=== PATIENT | female | born 1935 | race Two or more races ===

== ENCOUNTER 2025-04-07 16:20 | Inpatient (IN) | payer MEDICARE, MEDICAID, SELFPAY ==
[2025-04-07] VITALS (13 sets, daily range): BP systolic 113–140; BP diastolic 33–99; PULSE 96–141; RESP 13–27; TEMP 36.5–37.1; O2SAT 90–97; BMI 31.8; BMI 34.7
--- NOTE | 2025-04-07 16:39 | EKG_ITS ---
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
--- NOTE | 2025-04-07 16:39 | XR_ITS ---
Examination: PA lateral chest 2 views TECHNIQUE: Upright PA and lateral chest 2 views Standing time: April 07, 2025 1805 hours Comparison December 27, 2019. FINDINGS: Atrial fibrillation with chest pain today FINDINGS: Mild heart failure Moderate enlargement cardiac contour Prominent vascular congestion. Early perihilar basilar septal edema IMPRESSION: Mild heart failure
--- NOTE | 2025-04-07 16:39 | PD.EDRME ---
Rapid Medical Screening Exam RME Arrival date/time: 04/07/25 16:20 89-year-old female with no known medical history presents to the emergency room with a chief complaint of bilateral lower extremity swelling, shortness of breath, chest tightness x 1 week I have greeted and performed a focused initial assessment of this patient. A comprehensive ED assessment and evaluation of the patient, analysis of all test results, and completion of the medical decision making process will be conducted by additional ED providers. Chief Complaint: Extremity Injury, Lower Time Seen by Provider: 04/07/25 16:30 Vital signs reviewed by provider: Yes
[2025-04-07 17:21] LABS: Basophils # (Auto) 0.1 Thou/mm3 (0.0-0.2); Basophils % (Auto) 1 % (0-2.5); Eosinophils % (Auto) 0 % (0-10); Hemoglobin 8.9 g/dL (12.0-16.0); Immature Granulocytes % (Auto) 0 % (0-0); Immature Granulocytes Auto 0.03 Thou/mm3 (0.00-0.00); Lymphocytes # (Auto) 1.2 Thou/mm3 (1.0-4.8); Lymphocytes % (Auto) 16 % (10-50); Mean Corpuscular HGB Conc 30.7 g/dl (31.0-37.0); Mean Corpuscular Hemoglobin 24.8 pg (25.0-35.0); Mean Corpuscular Volume 81 fL (80-100); Monocytes # (Auto) 0.9 Thou/mm3 (0.0-0.8); Monocytes % (Auto) 11 % (0-12); Neutrophils # (Auto) 5.5 Thou/mm3 (1.8-7.7); Neutrophils % (Auto) 72 % (37-80); Nucleated Red Blood Cell % 0 /100 WBC (0); Platelet Count 379 Thou/mm3 (140-440); RDW Standard Deviation 53.3 fL (36.4-46.3); Red Blood Count 3.59 Miln/mm3 (4.00-5.20); White Blood Count 7.7 Thou/mm3 (3.6-11.0)
[2025-04-07 17:36] LABS: Collection Type, Urine Clean Catch
--- NOTE | 2025-04-07 17:36 | PC.NURSE ---
PT CAME INTO ED WITH DAUGHTER FOR LOWER EXTREMITY PAIN.
[2025-04-07 17:46] LABS: Alanine Aminotransferase 17 U/L (10-49); Albumin, Serum 4.3 gm/dL (3.4-4.8); Albumin/Globulin Ratio 1.2 (1.2-2.2); Alkaline Phosphatase 120 U/L (46-116); Anion Gap 13 (7-16); Aspartate Amino Transferase 27 U/L (0-34); BUN/Creatinine Ratio 28 Ratio (12-20); Bilirubin,Total 1.4 mg/dL (0.3-1.2); Blood Urea Nitrogen 28 mg/dL (9-23); Calcium 8.6 mg/dL (8.3-10.6); Calcium (Corrected) 8.6 mg/dL (8.5-10.1); Carbon Dioxide 22.8 mMol/L (20.0-31.0); Chloride 103 mMol/L (98-107); Estimated Creatinine Clearance 38.6 mL/min (>60); Globulin 3.7 gm/dL (2.3-3.5); Glucose 126 mg/dL (74-106); Magnesium 1.9 mg/dL (1.6-2.6); Osmolality,Calculated 285 (275-295); Potassium 4.1 mMol/L (3.4-5.1); Sodium 139 mMol/L (136-145); eGFR 54 See Note
[2025-04-07 17:58] LABS: B-Type Natriuretic Peptide 379 pg/mL (0-100)
[2025-04-07 18:15] LABS: Bacteria,Urine Rare; Bilirubin,Urine Negative (Negative); Blood,Urine Trace (Negative); Clarity,Urine Clear (Clear/Hazy); Color,Urine Lt-Yellow (Lt Yel-Yel); Glucose, Urine Negative (Negative); Hyaline Casts,Urine < 1 /hpf (0-1); Ketones,Urine Negative (Negative); Leukocyte Esterase,Urine Positive (Negative); Nitrite,Urine Positive (Negative); Protein,Urine Negative (Neg - Trace); RBC,Urine 4 /hpf (0-3); Specific Gravity,Urine 1.015 (1.001-1.035); Squamous Epithelial Cell,Urine 2 /hpf (0-5); Urobilinogen,Urine Negative mg/dL (0.0-1.0); WBC,Urine 13 /hpf (0-5)
--- NOTE | 2025-04-07 18:31 | EDNOTE_ITS ---
Lower Extremity Injury RME/HPI General Chief Complaint: Extremity Injury, Lower Stated Complaint: LEG / FEET PAIN SWELLING X 1 WK Time Seen by Provider: 04/07/25 16:30 Arrival date/time: 04/07/25 16:20 RME / HPI RME / HPI Narrative: 04/07/25 16:20 89-year-old female with no known medical history presents to the emergency room with a chief complaint of bilateral lower extremity swelling, shortness of breath, chest tightness x 1 week I have greeted and performed a focused initial assessment of this patient. A comprehensive ED assessment and evaluation of the patient, analysis of all test results, and completion of the medical decision making process will be conducted by additional ED providers. ------- Dr. Patino?s Main ED Evaluation: 89yo female with a history of HTN accompanied by her daughter presents to the ED for a chief complaint of bilateral feet pain and swelling x 1 week. Daughter states the patient was seen by her PCP in [place] last week and was prescribed 10 days worth of Lasix. Daughter states the patient has continued to have bilateral feet swelling and pain since then and does not have a follow-up appointment until the end of this month, so she brought the patient in for evaluation. Patient reports she has been unable to sleep at night due to feeling short of breath. She has been needing to sleep with her head elevated. Patient denies any chest pain, N/V, fever, chills or any other associated symptoms. Patient does ambulate with a walker. Related Data Allergies Allergy/AdvReac Type Severity Reaction Status Date / Time No Known Allergies Allergy Verified 04/07/25 16:23 Review of Systems Review of Systems Systems Reviewed: All systems reviewed, normal except as documented Past Medical History Past Medical History NEUROLOGIC: Negative Seizures CARDIAC: Positive Hypertension; Negative Congestive Heart Failure RESPIRATORY: Negative Chronic Obstructive Pulmonary Disease (COPD) GASTROINTESTINAL: Positive Gastrointestinal Disorders, Gall Bladder Disease and Gastroesophageal Reflux Disease GENITOURINARY: Negative Renal Disease ENDOCRINE: Negative Diabetes Mellitus Type 1 or Diabetes Mellitus Type 2 OTHER HISTORY: Negative Blood Transfusions, Blood Transfusion Reaction or Anesthesia Reactions Social History SMOKING STATUS: Never smoker SUBSTANCE USE: does not use ED Exam Narrative Physical exam: GENERAL APPEARANCE: AxOx4, generally well-appearing, no acute distress. HEENT: NC, AT. MMM. EOMI, clear conjunctiva, oropharynx clear. NECK: Supple without lymphadenopathy. No stiffness or restricted ROM. HEART: Irregularly irregular rhythm with tachycardia in the 120s, normal S1/S1, no m/r/g LUNGS: CTAB, moving air well. No crackles or wheezes are heard. ABDOMEN: Soft, nontender, nondistended with good bowel sounds heard. BACK: No midline C/T/L spine pain or deformity, No CVAT, no obvious deformity. EXTREMITIES: Without cyanosis, clubbing. Tense pitting edema bilaterally from the thighs down to the feet. MUSCULOSKELETAL: FROM of all major joints, no chest tenderness NEUROLOGICAL: Grossly nonfocal. Alert and oriented, moving all 4 extremities. CN not formally tested but appear grossly intact. Skin: Warm and dry without any rash. Course Course Course Narrative: CXR is ordered for determining the etiology of shortness of breath. Quality Measures none Orders Category Date Time Status COVID-19 Screening Questionnaire NOW Care 04/07/25 18:52 Active Decision to Admit X1 Care 04/07/25 18:52 Active EKG (ED ONLY) *Do not use* NOW Care 04/07/25 16:39 Completed EKG (ED Only) Stat Exams 04/07/25 16:39 Draft XR chest 2V Stat Exams 04/07/25 16:39 Completed B-Type Natriuretic Peptide Stat Lab 04/07/25 17:10 Completed CBC Stat Lab 04/07/25 17:10 Completed Comprehensive Metabolic Panel Stat Lab 04/07/25 17:10 Completed Magnesium Stat Lab 04/07/25 17:10 Completed Partial Thromboplastin Time Stat Lab 04/07/25 17:10 Received Prothrombin Time with INR Stat Lab 04/07/25 17:10 Received Troponin I Stat Lab 04/07/25 17:10 Completed Urinalysis Stat Lab 04/07/25 17:29 Completed Dextrose 5%-Water [D5w] 100 ml Med 04/07/25 18:32 Active Diltiazem Inj [Cardizem Inj] 125 mg IV 5 mg/hr Diltiazem Inj [Cardizem Inj] Med 04/07/25 18:32 Discontinued 15 mg IV X1 ONE Furosemide Inj [Lasix Inj] Med 04/07/25 18:32 Discontinued 40 mg IVP X1 ONE Vital Signs Vital signs: Vital Signs Temperature 98.8 F 04/07/25 16:45 Pulse Rate 130 H 04/07/25 16:45 Respiratory Rate 18 04/07/25 16:45 Blood Pressure 113/76 04/07/25 16:45 Pulse Oximetry (%) 95 04/07/25 16:45 Oxygen Delivery Method Room Air 04/07/25 16:45 Extremity Injury, Lower MDM Narrative MDM Narrative:: Scribe Attestation: 04/07/25 - Lu Kennedy am scribing for and in the presence of Dr. Patino. Patient data External records reviewed:: [facility] previous records (Per chart review, patient was seen here on 05/07/24 for hip pain.) Clinical information provided by:: patient and family (daughter) Social determinants that could affect healthcare access:: none Patient has the following chronic illnesses:: HTN How is presenting disease/condition affected by chronic disease/condition?: uneffected by Evaluation data The following diagnostics were reviewed and interpreted by me:: lab results, radiology exam(s) and EKG tracing(s) Lab and/or radiology exams considered but not ordered:: none Interpretation Summary: WBC count is normal, HnH is 8.9/29.0, Creatinine is normal, BUN is 28, Troponin is normal, BNP is 379, UA is unremarkable, according to my interpretation. EKG done at 1649, aFib RVR, rate of 119, normal intervals, no acute ST or T wave changes, no STEMI, according to my interpretation. [facility] Report Signed Patient: SEPIDEH COKER [facility]. Record#: [id number] Birthdate: 1935 Age/Sex: 89 / F Location: [facility] Attending Dr: Ordering Physician: Faisal García Date of Service: 04/07/25 Procedure(s): XR chest 2V Accession Number(s): [id number] cc: Faisal García; Smith Saez MD; NO PRIMARY/FAMILY,PHYSICIAN~ Examination: PA lateral chest 2 views TECHNIQUE: Upright PA and lateral chest 2 views Standing time: April 07, 2025 1805 hours Comparison December 27, 2019. FINDINGS: Atrial fibrillation with chest pain today FINDINGS: Mild heart failure Moderate enlargement cardiac contour Prominent vascular congestion. Early perihilar basilar septal edema IMPRESSION: Mild heart failure Dictated By: Smith Saez MD Signed By: <Electronically signed by Smith Saez MD in OV> 04/07/25 0036 Medications / Prescriptions Medications or Prescriptions considered but not ordered:: none Medication administrations:: Medication Administration History Diltiazem HCl 125 mg/ Dextrose 125 mls @ 5 mls/hr IV .Q24H SHANTA Stop: 05/07/25 18:31 Discontinued Medications Diltiazem HCl (Diltiazem Inj 5 Mg/Ml Vial 5 Ml) 15 mg IV X1 ONE Stop: 04/07/25 18:33 Furosemide (Furosemide Inj 10 Mg/Ml 4ml Vial) 40 mg IVP X1 ONE Stop: 04/07/25 18:33 see above Consultations Consultation(s) initiated? (list below): Yes Consultation #1 (Physician, Specialty, Details): Discussed case with Dr. Navarro from Hospitalist service regarding admission. Discussed patients ED course, exam findings, labs, and radiology results. The Hospitalist agrees to accept the patient for admission. Time: 18:41 Diagnosis Extremity Injury, Lower Differential Diagnosis: other (CHF, arthritis pain, varicose veins) Most likely diagnosis given after review of the tests above:: see clinical impression below Admission Indicated Admission indicated?: indicated Admission Request Was there a request for admission?: Yes Admission Attestation Admission request attestation: Discussed case with [] from Hospitalist service regarding admission. Discussed patients ED course, exam findings, labs, and radiology results. The Hospitalist [agrees,declines] to accept the patient for admission. Disposition Plan Disposition Plan: Admit Discharge Plan Plan Patient Disposition: Admit Acute Care w/in Hospital Prescriptions/Referrals Referrals: No Primary/Family,Physician [Primary Care Provider] - In 1 week Problem List Clinical Impression: CHF (congestive heart failure) Patient/Caregiver Discharge Instructions Print Language: Chilean Stand Alone Forms: [employer] Award Info., Patient Portal Info Letter
[2025-04-07] MEDS: FUROSEMIDE INJ 10 MG/ML 4ML VIAL 40 MG IVP (18:57)
[2025-04-07] MEDS: DILTIAZEM INJ 5 MG/ML VIAL 5 ML 15 MG IV (18:59)
[2025-04-07] MEDS: DILTIAZEM INJ 125 MG in DEXTROSE 5%-WATER 100 ML IV (18:59)
--- NOTE | 2025-04-07 19:22 | PC.NURSE ---
assisted pt up to bsc and back to be with daughter at bedside.
[2025-04-07 19:32] LABS: INR 1.2 (0.9-1.3); Partial Thromboplastin Time 29.1 Seconds (22.0-36.0); Prothrombin Time 13.1 Seconds (9.0-12.2)
[2025-04-07 19:44] LABS: Free T4 (Free Thyroxine) 1.01 ng/dL (0.89-1.76); Thyroid Stimulating Hormone 5.53 uIU/mL (0.55-4.78)
--- NOTE | 2025-04-07 19:51 | PD.HHHP ---
Documentation for date of: 04/07/25 HPI - Hospitalist History of Present Illness History of Present Illness: Leg swelling History of present illness: An 89-year-old female presented to the ER with the chief complaint of bilateral lower extremity swelling. The patient described one week of progressive leg swelling. She states the swelling began recently but has persisted despite starting a diuretic prescribed by her PCP last week. It causes discomfort and has not improved. She also c/o shortness of breath. Patient denied chest pain, fever, or cough. She came to the ER because the swelling persisted and caused increased discomfort. The patient has a history of arthritis involving the hips and waist, with prior consideration for steroid injections and hip replacement, declined due to fear of anesthesia. No known history of HTN, DM, or CAD, though she has been previously noted to have prediabetes. Current medications include Lisinopril, Meclizine, Lansoprazole, Vitamin D, and a recent diuretic. Social history includes no smoking, alcohol, or drug use. She is functionally independent and ambulatory with a walker due to chronic hip and back pain. She lives with her daughter, who is her primary caregiver. Surgical history includes procedures for kidney stones. No prior cardiac history reported. In the ER, vital signs recorded as temp 98.8 F, HR 130 bpm, RR 18, BP 113/76 mmHg, saturation 95% on room air. Labs revealed WBC 7.7, Hb 8.9, Plt 379, Na 139, K 4.1, BUN 28, Creatinine 1.0, Glucose 126, BNP 379, Troponin negative. CXR showed mild heart failure. EKG revealed atrial fibrillation with RVR. Patient was started on Cardizem drip by ER physician. Admit for further evaluation and treatment. Review of Systems Review of Systems Narrative Review of Systems: A 14 point review of systems was assessed and negative except for that per HPI Past Medical History Past Medical History NEUROLOGIC: Negative Seizures CARDIAC: Positive Hypertension; Negative Congestive Heart Failure RESPIRATORY: Negative Chronic Obstructive Pulmonary Disease (COPD) GASTROINTESTINAL: Positive Gastrointestinal Disorders, Gall Bladder Disease and Gastroesophageal Reflux Disease GENITOURINARY: Negative Renal Disease ENDOCRINE: Negative Diabetes Mellitus Type 1 or Diabetes Mellitus Type 2 OTHER HISTORY: Negative Blood Transfusions, Blood Transfusion Reaction or Anesthesia Reactions Social History SMOKING STATUS: Never smoker SUBSTANCE USE: does not use Meds Home Medications and Allergies Home Medications ?Medication ?Instructions ?Recorded ?Confirmed ?Type cholecalciferol (vitamin D3) 25 25 mcg PO DAILY 04/07/25 04/07/25 History mcg (1,000 unit) tablet dexlansoprazole 30 mg 30 mg PO DAILY 04/07/25 04/07/25 History capsule,biphase delayed release furosemide 20 mg tablet 20 mg PO DAILY 04/07/25 04/07/25 History lisinopril 10 mg tablet 10 mg PO DAILY 04/07/25 04/07/25 History meclizine 12.5 mg tablet 12.5 mg PO Q12H PRN dizziness 04/07/25 04/07/25 History Allergies Allergy/AdvReac Type Severity Reaction Status Date / Time No Known Allergies Allergy Verified 04/07/25 16:23 Exam Vital Signs Temp Pulse Resp BP Pulse Ox O2 Del Method 97.7 F 96 20 117/71 97 Room Air 04/07/25 18:27 04/07/25 19:44 04/07/25 18:27 04/07/25 18:59 04/07/25 18:27 04/07/25 18:27 Narrative Constitutional: Female, in no apparent distress. Eyes: Extraocular movements intact. No ptosis. PERRL. Neck: Supple, trachea midline. No thyromegaly. Lungs: Bibasilar crackles. CV: S1, S2. Irregular rate and rhythm. Murmur. GI: Soft, nontender. No HSM. Musculoskeletal: No cyanosis. BLE edema. Neuro: No focal deficit. No sensory deficit. Alert and oriented x3. Psychiatric: No signs of depression and is nonfocal. Skin: Warm and dry. Results - Hospitalist Labs Diagrams: 04/07/25 17:10 04/07/25 17:10 Labs: Short CBC 04/07/25 Range/Units 17:10 WBC 7.7 (3.6-11.0) Thou/mm3 Hgb 8.9 L (12.0-16.0) g/dL Hct 29.0 L (36.0-46.0) % Plt Count 379 (140-440) Thou/mm3 BMP 04/07/25 17:10 Sodium 139 Potassium 4.1 Chloride 103 Carbon Dioxide 22.8 BUN 28 H Creatinine 1.0 Glucose 126 H Calcium 8.6 Cardiac Enzymes 04/07/25 Range/Units 17:10 Troponin I 0.020 (0.0-0.045) ng/mL Liver Function 04/07/25 Range/Units 17:10 Total Bilirubin 1.4 H (0.3-1.2) mg/dL AST 27 (0-34) U/L ALT 17 (10-49) U/L Alkaline Phosphatase 120 H (46-116) U/L Albumin 4.3 (3.4-4.8) gm/dL Urine 04/07/25 Range/Units 17:29 Urine Color Lt-Yellow (Lt Yel-Yel) Urine Clarity Clear (Clear/Hazy) Urine pH 6.0 (5.0-7.0) Ur Specific [place] 1.015 (1.001-1.035) Urine Protein Negative (Neg - Trace) Urine Glucose (UA) Negative (Negative) Assessment & Plan -Hospitalist Additional Assessment #Atrial Fibrillation with RVR Assessment: New-onset AF with RVR (HR 130 bpm), [id number] Score: 4 (age >=5, female, probable HF), EKG confirmed Plan: - Continue Cardizem drip for acute rate control; transition to oral rate control once stable - Initiate anticoagulation given elevated stroke risk - Monitor telemetry and HR response closely - TTE to assess cardiac structure/function #Heart Failure Assessment: Mild heart failure on CXR, elevated BNP 379, symptoms of SOB and bilateral LE edema; no known prior HF diagnosis Plan: - Loop diuretic IV for volume overload - Monitor I/Os and daily weights - Sodium restriction and fluid restriction as appropriate - Monitor electrolytes and renal function daily - TTE to assess ejection fraction and structural disease - Initiate guideline-directed medical therapy (GDMT) based on EF - Cardiology consult #Anemia Assessment: Hb 8.9, chronicity unclear; no overt bleeding reported, unclear etiology Plan: - Trend CBC; assess iron studies, B12, folate - Monitor for signs of acute blood loss #UTI Plan: - Ceftriaxone Quality Measures Quality Measures none Advance care planning discussed with:: patient
[2025-04-07 21:21] LABS: Glucose Estimated Average 126 mg/dL (80-131)
[2025-04-07 21:47] LABS: Iron 18 mcg/dL (50-170); Percent Iron Saturation 4 % (20-55); Total Iron Binding Capacity 403 mcg/dL (250-425); Unsaturated Iron Binding 385 (225-295)
[2025-04-07 22:24] LABS: Folate > 24.00 ng/mL (>5.38); Vitamin B12 780 pg/mL (211-911)
[2025-04-07] MEDS: MECLIZINE HCL 25 MG TABLET 12.5 MG PO (23:12)
[2025-04-07] MEDS: APIXABAN 2.5 MG TABLET 5 MG PO (23:12)
[2025-04-07] MEDS: MELATONIN 3 MG TABLET PO (23:13)
[2025-04-07] MEDS: IBUPROFEN TAB 200 MG TABLET PO (23:13)
[2025-04-07] MEDS: cefTRIAXone/D5w 1gm IV premix 1 GM/50 ML BAG IV (23:17)
[2025-04-08] VITALS (12 sets, daily range): BP systolic 93–115; BP diastolic 52–73; PULSE 71–96; RESP 14–89; TEMP 36.1–36.8; O2SAT 92–98; BMI 34.7
[2025-04-08 06:23] LABS: Basophils # (Auto) 0.1 Thou/mm3 (0.0-0.2); Basophils % (Auto) 1 % (0-2.5); Eosinophils # (Auto) 0.1 Thou/mm3 (0.0-0.5); Eosinophils % (Auto) 2 % (0-10); Hematocrit 23.8 % (36.0-46.0); Immature Granulocytes % (Auto) 0 % (0-0); Immature Granulocytes Auto 0.02 Thou/mm3 (0.00-0.00); Lymphocytes # (Auto) 1.2 Thou/mm3 (1.0-4.8); Lymphocytes % (Auto) 19 % (10-50); Mean Corpuscular HGB Conc 32.4 g/dl (31.0-37.0); Mean Corpuscular Hemoglobin 25.5 pg (25.0-35.0); Mean Corpuscular Volume 79 fL (80-100); Monocytes # (Auto) 0.8 Thou/mm3 (0.0-0.8); Monocytes % (Auto) 13 % (0-12); Neutrophils % (Auto) 64 % (37-80); Nucleated Red Blood Cell % 0 /100 WBC (0); Platelet Count 297 Thou/mm3 (140-440); RDW Standard Deviation 52.4 fL (36.4-46.3); Red Blood Count 3.02 Miln/mm3 (4.00-5.20); White Blood Count 6.2 Thou/mm3 (3.6-11.0)
[2025-04-08 06:31] LABS: Hemoglobin 7.7 g/dL (12.0-16.0)
[2025-04-08 06:45] LABS: Anion Gap 8 (7-16); BUN/Creatinine Ratio 26 Ratio (12-20); Blood Urea Nitrogen 26 mg/dL (9-23); Calcium 8.5 mg/dL (8.3-10.6); Carbon Dioxide 28.2 mMol/L (20.0-31.0); Cardiac Risk Estimate 3.4 RATIO (3.7-5.6); Chloride 104 mMol/L (98-107); Cholesterol 98 mg/dL (132-200); Estimated Creatinine Clearance 38.9 mL/min (>60); Glucose 106 mg/dL (74-106); HDL Cholesterol 29 mg/dL (40-60); LDL Cholesterol,Calculated 57 mg/dL (0-130); Osmolality,Calculated 284 (275-295); Potassium 3.5 mMol/L (3.4-5.1); Sodium 140 mMol/L (136-145); Triglycerides 62 mg/dL (30-150); Troponin I 0.023 ng/mL (0.0-0.045); eGFR 54 See Note
--- NOTE | 2025-04-08 08:45 | PC.SS ---
Update: Patient admitted due to AFIB. Patient receiving Cardizem drip.
[2025-04-08] MEDS: IBUPROFEN TAB 200 MG TABLET PO (09:12)
[2025-04-08] MEDS: APIXABAN 2.5 MG TABLET 5 MG PO ×2 (09:13→20:41)
[2025-04-08] MEDS: FUROSEMIDE INJ 10 MG/ML 4ML VIAL 40 MG IVP (09:13)
[2025-04-08] MEDS: cefTRIAXone/D5w 1gm IV premix 1 GM/50 ML BAG IV (09:13)
--- NOTE | 2025-04-08 10:15 | CHAP ---
Patient was visited by the Spiritual Care Volunteer who prayed for them. (Volunteer was in the hospital from 09:15-10:15).
--- NOTE | 2025-04-08 12:00 | PC.SS ---
SPORTS ANCHOR conducted bedside contact with the patient conduct initial assessment and to discuss discharge planning.? Present at bedside with patient was daughter Suzy Maxwell .? Patient?s daughter provided information for assessment and discharge planning.? Patient is Jamaican speaking.? Patient resides at home with daughter.? Patient utilizes a walker to assist with ambulation.? Patient does not utilize home oxygen.? Patient is able to complete ADL?s independently.? Patient?s surrogate medical decision maker is daughter, Suzy Maxwell.? Patient utilizes [facility] for PCP services.? Patient does not possess any specialty providers.? Patient utilizes [facility] for medication services.? Plan is for the patient to return home at the time of discharge.? Family will provide transportation on behalf of the patient.? No further discharge needs identified.? No further intervention required at this time, social media developer will be available to address any further concerns.? Next of Kin: Suzy Maxwell D/C Plan: Home
--- NOTE | 2025-04-08 13:00 | PD.IMCONS ---
HPI Data of Consult Consult date: 04/08/25 Requesting Physician: Jyoti Guevara MD Primary Care Provider: Physician No Primary/Family Consult Narrative Reason for consult: A-fib with RVR and CHF History of present illness: A 89-year-old female with a past medical history of essential hypertension, GI bleed, anemia secondary to diverticulosis in 2019, osteoarthritis GERD presented to the emergency department for worsening bilateral lower extremity swelling.. Patient apparently has been having worsening leg swelling over the past couple of weeks and did see her primary care doctor who did start her on Lasix but did not improve much and hence came to the emergency department for further evaluation. Patient also complains of leg pain which is mostly neuropathic and is very tender to touch. On examination she does have at least 2+ leg swelling. On further questioning patient does complain of shortness of breath but denies any kind of palpitations or any chest pain or chest pressure. She does have some orthopnea but no PND and denies any kind of syncope or fall but has some occasional dizziness. In the emergency department initial vital signs showed a temperature of 90 8.5F, heart rate of 138 bpm, respiratory rate of 18/min blood pressure of 113/76 mmHg saturation 95% on room air. Labs showed WBC of 7.7 hemoglobin of 8.9, platelet of 375, sodium of 139, potassium 4.1, BUN of 28, creatinine of 1.0 glucose of 126 BNP was 379. Troponin was negative. EKG showed atrial fibrillation with RVR chest x-ray did not show mild vascular congestion. Patient was started on Cardizem drip at 5 mg/h in the emergency department and admitted for further evaluation of his with RVR as well as CHF and cardiology consulted for the same. Past medical history: As noted above Past surgical history history of colonoscopy in 2020 with history of GI bleed and diverticulosis Social history: Does not smoke and denies any current alcohol or drug abuse walks with the help of a walker and lives with the daughter who is the primary caregiver Family history: No significant history of heart disease in the family Allergies: NKDA Travel history: None recently cc:: cc: Jyoti Guevara MD Review of Systems Review of Systems Narrative Review of Systems: All other 12 systems apart from HPI were reviewed and are negative Past Medical History Past Medical History NEUROLOGIC: Negative Seizures CARDIAC: Positive Hypertension; Negative Congestive Heart Failure RESPIRATORY: Negative Chronic Obstructive Pulmonary Disease (COPD) GASTROINTESTINAL: Positive Gastrointestinal Disorders, Gall Bladder Disease and Gastroesophageal Reflux Disease GENITOURINARY: Negative Renal Disease ENDOCRINE: Negative Diabetes Mellitus Type 1 or Diabetes Mellitus Type 2 OTHER HISTORY: Negative Blood Transfusions, Blood Transfusion Reaction or Anesthesia Reactions Social History SMOKING STATUS: Never smoker SUBSTANCE USE: does not use Meds Home Medications and Allergies Home Medications ?Medication ?Instructions ?Recorded ?Confirmed ?Type cholecalciferol (vitamin D3) 25 25 mcg PO DAILY 04/07/25 04/07/25 History mcg (1,000 unit) tablet dexlansoprazole 30 mg 30 mg PO DAILY 04/07/25 04/07/25 History capsule,biphase delayed release furosemide 20 mg tablet 20 mg PO DAILY 04/07/25 04/07/25 History lisinopril 10 mg tablet 10 mg PO DAILY 04/07/25 04/07/25 History meclizine 12.5 mg tablet 12.5 mg PO Q12H PRN dizziness 04/07/25 04/07/25 History Allergies Allergy/AdvReac Type Severity Reaction Status Date / Time No Known Allergies Allergy Verified 04/07/25 16:23 Exam Vital Signs Temp Pulse Resp BP Pulse Ox O2 Del Method 96.9 F 78 15 105/63 98 Room Air 04/09/25 00:00 04/09/25 00:00 04/09/25 00:00 04/09/25 00:00 04/09/25 00:00 04/09/25 00:00 Narrative Exam General: Alert and oriented x3. In no acute distress. Eyes: Pupils are equal and reactive to light bilaterally. HEENT: Atraumatic, normocephalic. No JVD noted. Mucosa moist. Cardiovascular: Normal S1 and S2. Irregularly irregular, 2 or 6 systolic murmur heard in the right sternal border as well as the apex, no rubs and gallops. 2+ bilateral lower extremity edema Respiratory: No respiratory distress. Lungs are clear to auscultation bilaterally but decreased at the bases with occasional crackles. Abdomen: Soft, nontender, nondistended. Skin: No rash. Warm to touch. Musculoskeletal: No gross injuries. Able to move all 4 extremities. Neuro: Alert and oriented x3. No focal neuro deficits. Psych: Normal affect and mood Results Labs 04/08/25 20:10 04/08/25 05:55 Labs: Short CBC 04/08/25 04/08/25 Range/Units 05:55 20:10 WBC 6.2 (3.6-11.0) Thou/mm3 Hgb 7.7 L 7.9 L (12.0-16.0) g/dL Hct 23.8 L 24.8 L (36.0-46.0) % Plt Count 297 D (140-440) Thou/mm3 BMP 04/08/25 05:55 Sodium 140 Potassium 3.5 D Chloride 104 Carbon Dioxide 28.2 BUN 26 H Creatinine 1.0 Glucose 106 Calcium 8.5 Cardiac Enzymes 04/08/25 Range/Units 05:55 Troponin I 0.023 (0.0-0.045) ng/mL Assessment and Plan Additional Assessment & Plan Additional Plan: A 89-year-old female with a past medical history of essential hypertension, GI bleed, anemia secondary to diverticulosis in 2019, osteoarthritis GERD presented to the emergency department for worsening bilateral lower extremity swelling. 1. New onset atrial fibrillation with RVR 2. Acute CHF exacerbation-systolic versus diastolic? 3. Severe anemia with hemoglobin of 7.9 4. Essential hypertension 5. History of GI bleed with history of diverticulosis in 2019 6. Iron deficiency anemia 7. Osteoarthritis 8. GERD 9. Neuropathy-autonomic? Patient presented with new onset paroxysmal atrial fibrillation with RVR with a heart rate of around 130-120 bpm. EKG confirmed the atrial fibrillation. Patient was started on diltiazem drip at 5 mg/h and now rate is controlled between 60 to 80 bpm. Patient blood pressure appears to be stable. Recommended to stop the diltiazem drip 2 hours after starting metoprolol XL 50 mg once daily. Can also start with metoprolol 25 mg once daily for now and give an additional dose of the blood pressure is permissible. Patient potassium is 3.5 recommend to replace with 60 mg oral potassium and also to keep potassium greater than 4 magnesium greater than 2.0 at all times. Heparin drip for anticoagulation if no contraindications of any acute GI bleed and will need Eliquis later if hemoglobin stable as the chads Vascor is high. Patient appears to have new onset CHF exacerbation-unclear if systolic versus diastolic. Patient does have 2+ lower extremity edema bilaterally. BNP elevated at 379 and as well as chest x-ray shows mild vascular congestion. Recommend to start diuresis with Lasix 40 mg IV once daily and keep net -1 to 2 L/day. Monitor renal function closely. Strict input output Daily weights and 2 g sodium diet. Echocardiogram ordered and will follow-up the results to confirm systolic versus diastolic congestive heart failure. Patient does have systolic congestive heart failure then patient will need goal-directed medical therapy with beta-camilla, Entresto and spironolactone based on her blood pressure. Severe anemia with hemoglobin of 7.9. Iron studies shows really low iron at 14 and low saturation at 4% with elevated TIBC at 389. Discussed with the primary team to give patient IV iron daily for now and further workup to rule out any kind of acute GI bleed or hemolysis. Patient will need to be on anticoagulation given her new onset paroxysmal atrial fibrillation with RVR. Management of rest of the medical conditions as per primary team and other consultants. Thank you for the consult and allowing me to participate in the care of the patient. Cardiology will continue to follow. Armando Hanson M.D. Interventional Cardiology
--- NOTE | 2025-04-08 14:55 | PC.NURSE ---
pt. Bp 93/52, orders to hold metoprolol and recheck BP in 30 minutes
[2025-04-08] MEDS: POTASSIUM CHLORIDE 20 mEq TABCR 60 MEQ PO (14:57)
--- NOTE | 2025-04-08 15:23 | PD.HHPROG ---
Documentation for date of: 04/08/25 Subjective - Hospitalist Subjective Interval history: At bedside today, patient states she is feeling better compared to presentation but continues to have some pain on her foot. She has bilateral pedal edema up to her knees. Her shortness of breath has improved. Continues to be on A-fib, rate controlled. Continues to be on Cardizem drip. Discussed with cardiology, recommended starting metoprolol 50 XL and stopping Cardizem drip. Review of Systems Review of Systems Systems Reviewed: All systems reviewed, normal except as documented Exam Vital Signs Temp Pulse Resp BP Pulse Ox O2 Del Method 98.3 F 77 24 H 93/52 L 97 Room Air 04/08/25 12:00 04/08/25 14:57 04/08/25 12:00 04/08/25 14:57 04/08/25 12:00 04/08/25 04:00 Narrative Constitutional: Elderly female, appears comfortable, laying on bed, saturating well on room air HEENT: EOMI, PEERLA, no icterus Neck: Supple, full range of motion, no observable masses. Lungs: Clear and good breath sounds equally. No wheezing. No rhonchi. CV: Irregularly irregular rate, S1 and S2 heard without murmur GI: Soft, nondistended. No rebound tenderness. Musculoskeletal: No joint swelling, no redness, no edema. Neuro: No focal deficit. No sensory deficit. Alert and oriented, grossly intact cranial nerves Psychiatric: Appropriate mood and affect Skin: 2+ bilateral pedal edema Objective - Hospitalist Labs Diagram: 04/08/25 05:55 04/08/25 05:55 Labs: Laboratory Results - last 24 hr 04/07/25 04/07/25 04/08/25 17:10 17:29 05:55 WBC 7.7 6.2 RBC 3.59 L 3.02 L Hgb 8.9 L 7.7 L Hct 29.0 L 23.8 L MCV 81 79 L MCH 24.8 L 25.5 MCHC 30.7 L 32.4 RDW Std Deviation 53.3 H 52.4 H Plt Count 379 297 D Neut % (Auto) 72 64 Lymph % (Auto) 16 19 [place] % (Auto) 11 13 H Eos % (Auto) 0 2 Baso % (Auto) 1 1 Neut # (Auto) 5.5 4.0 Lymph # (Auto) 1.2 1.2 [place] # (Auto) 0.9 H 0.8 Eos # (Auto) 0.0 0.1 Baso # (Auto) 0.1 0.1 Immature Gran # (Auto) 0.03 H 0.02 H Absolute Nucleated RBC 0.00 0.00 Immature Gran % 0 0 Nucleated RBC % 0 0 PT 13.1 H INR 1.2 APTT 29.1 Sodium 139 140 Potassium 4.1 3.5 D Chloride 103 104 Carbon Dioxide 22.8 28.2 Anion Gap 13 8 BUN 28 H 26 H Creatinine 1.0 1.0 Estim Creat Clear Calc 38.6 L 38.9 L eGFR 54 L 54 L BUN/Creatinine Ratio 28 H 26 H Glucose [address] Glu mg/dL 126 Hemoglobin A1c 6.0 Calculated Osmolality 285 284 Calcium 8.6 8.5 Corrected Calcium 8.6 Magnesium 1.9 Iron 18 L TIBC 403 Iron Saturation 4 L Unsat Iron Binding 385 H Total Bilirubin 1.4 H AST 27 ALT 17 Alkaline Phosphatase 120 H Troponin I 0.020 0.023 B-Natriuretic Peptide 379 H Total Protein 8.0 Albumin 4.3 Globulin 3.7 H Albumin/Globulin Ratio 1.2 Triglycerides 62 Cholesterol 98 L LDL Cholesterol, Calc 57 HDL Cholesterol 29 L Cholesterol/HDL Ratio 3.4 L Vitamin B12 780 Folate > 24.00 TSH 5.53 H Free T4 1.01 Ur Collection Type Clean Catch Urine Color Lt-Yellow Urine Clarity Clear Urine pH 6.0 Ur Specific [place] 1.015 Urine Protein Negative Urine Glucose (UA) Negative Urine Ketones Negative Urine Blood Trace Urine Nitrite Positive Urine Bilirubin Negative Urine Urobilinogen (Auto) Negative Ur Leukocyte Esterase Positive Urine RBC 4 H Urine WBC 13 H Ur Squamous Epith Cells 2 Urine Bacteria Rare Hyaline Casts < 1 Assessment & Plan Assessment: Patient is an 89 years old female with no known past medical history presented with complaint of extremity swelling, pain and shortness of breath # New onset A-fib Atrial Fibrillation with RVR New-onset AF with RVR (HR 130 bpm), [id number] Score: 4 (age >=5, female, probable HF), EKG confirmed Plan: - We will stop the Cardizem drip and start her on metoprolol XL 50 mg daily - Continues to be on Eliquis 5 mg twice daily - Cardiology following, appreciate recommendations - Continues to be on A-fib, rate controlled currently - Echocardiography pending #Heart Failure Mild heart failure on CXR, elevated BNP 379, symptoms of SOB and bilateral LE edema; no known prior HF diagnosis Plan: - Continues to be on Lasix 40 mg IV daily - Monitor strict I/Os and daily weights - Sodium restriction and fluid restriction as appropriate - Monitor electrolytes and renal function daily - Cardiology on board, awaiting echocardiogram # Iron deficiency anemia Hb 8.9 on presentation, chronicity unclear; no overt bleeding reported Plan: - B12 and folate level within normal limits - Iron level noted to be low - Started on IV iron therapy - 7.7 today, follow-up with evening level, transfuse if less than 7 #UTI Noted to have WBCs in the urine Plan: - We will continue with Rocephin daily #Peripheral neuropathy Patient complains of bilateral foot pain, concerning for neuropathy Plan: - Currently patient's blood pressure is soft, we will start her on gabapentin if blood pressure improves Code: Full code Diet: Cardiac diet DVT prophylaxis: On Eliquis for A-fib Disposition: Telemetry for management of new onset A-fib with RVR and volume overload Jyoti Guevara MD Time Spent with Patient Time: Total time spent is greater than 50% in coordination of care (as documented) at patient's floor/unit and/or counseling patient: Time with patient: Greater than 35 minutes Reason for Continued Stay Reason for continued stay: continue IV diuretic Quality Measures Quality Measures none Advance care planning discussed with:: patient
--- NOTE | 2025-04-08 15:29 | PC.NURSE ---
Dr. khan aware of new Bp reading 96/55, orders to keep holding metoprolol PO and continue cardiazem until bag ends and then reassess BP before next dose of cardiazem
[2025-04-08] MEDS: FERRIC SOD GLUC INJ 125 MG in SODIUM CHLORIDE 0.9% 100 ML 110 MG IV (16:49)
--- NOTE | 2025-04-08 19:13 | ECHO_ITS ---
Transthoracic Echo Report Ht (in): 62 Wt (lb): 190 Exam Location: [facility] Status: Inpatient Freight Air Brake Fitter: JENKINS Jonah^^^^ Indications: Procedure Performed: BP: / HR: Technical Quality: Fair MEASUREMENTS (Male / Female) Normal Values 2D ECHO LV Diastolic Diameter PLAX 4.6 cm 4.2 - 5.9 / 3.9 - 5.3 cm LV Systolic Diameter PLAX 4.0 cm IVS Diastolic Thickness 1.2 cm 0.6 - 1.0 / 0.6 - 0.9 cm LVPW Diastolic Thickness 1.1 cm 0.6 - 1.0 / 0.6 - 0.9 cm LV Relative Wall Thickness 0.5 LVOT Diameter 1.7 cm Aortic Root Diameter 3.1 cm LA Systolic Diameter LX 4.0 cm 3.0 - 4.0 / 2.7 - 3.8 cm LV Ejection Fraction MOD 4C 36.2 % LV Ejection Fraction 4C AL 38.7 % LA Volume Index 45.7 cm?/m? 16 - 28 cm?/m? DOPPLER AV Peak Velocity 153.0 cm/s AV Peak Gradient 9.1 mmHg AV Mean Gradient 6.5 mmHg AV Velocity Time Integral 34.0 cm AI Peak Velocity 276.0 cm/s AI Peak Gradient 30.2 mmHg AI Pressure Half Time 826.0 ms LVOT Peak Velocity 51.0 cm/s LVOT Peak Gradient 1.0 mmHg LVOT Velocity Time Integral 11.8 cm AV Area Cont Eq vti 0.8 cm? AV Area Cont Eq pk 0.8 cm? MV Peak Velocity 92.8 cm/s MV Peak Gradient 3.1 mmHg MV Mean Velocity 61.8 cm/s MV Mean Gradient 2.0 mmHg MV Area PHT 4.2 cm? MR Peak Velocity 382.5 cm/s MR Peak Gradient 58.8 mmHg Mitral E Point Velocity 81.5 cm/s LV E' Lateral Velocity 9.4 cm/s Mitral E to LV E' Lateral Ratio 8.7 LV E' Septal Velocity 6.4 cm/s Mitral E to LV E' Septal Ratio 12.7 TR Peak Velocity 258.8 cm/s TR Peak Gradient 26.9 mmHg PV Peak Velocity 76.0 cm/s PV Peak Gradient 2.1 mmHg RVOT Peak Velocity 46.6 cm/s FINDINGS Left Ventricle The left ventricular ejection fraction is severely decreased, estimated at 25- 30%. There is grade III diastolic dysfunction of the left ventricle (restrictive filling pattern). There is global left ventricular hypokinesis. Regional wall motion abnormalities are present. Right Ventricle The right ventricle is normal in size and systolic function. The estimated right ventricular systolic pressure, 30 mmHg. Left Atrium Mildly increased left atrial volume 45.7 mL/m?. Right Atrium The right atrium is normal by two-dimensional imaging, color flow and Doppler imaging with no structural abnormalities, no thrombus formation present. Atrial Septum The interatrial septum appears normal with no evidence of a shunt. Aorta The aorta is normal by two-dimensional, color flow and Doppler interrogation. Mitral Valve [id number] mitral regurgitation. Mild thickening of the mitral valve leaflets. Mild mitral annular calcification. Aortic Valve Aortic valve sclerosis. Trace to mild aortic valve regurgitation. Tricuspid Valve There is mild tricuspid valve regurgitation. Pulmonic Valve Trivial pulmonic valve regurgitation. Vessels The pulmonary artery appears normal. The inferior vena cava pulmonary and hepatic veins appear normal. Pericardium There is a tiny, hemodynamically insignificant pericardial effusion. CONCLUSIONS Indication: CHF and A-fib Moderately reduced LV function with an EF of 35 to 40%. Diastolic dysfunction present but cannot be graded due to the A-fib Normal RV size and function. Estimated RVSP mild to moderately elevated. Moderate TR. Mild MAC and mild to moderate MR Moderately dilated RA and mildly dilated LA. Mild aortic valve sclerosis without stenosis. Armando Hanson (Electronically Signed) Final Date: 09 Apr 2025 03:27
[2025-04-08] MEDS: METOPROLOL SUCCINATE XL 25 MG TABCR PO (19:49)
[2025-04-08 20:28] LABS: Hematocrit 24.8 % (36.0-46.0)
[2025-04-08 20:34] LABS: Hemoglobin 7.9 g/dL (12.0-16.0)
[2025-04-09] VITALS (12 sets, daily range): BP systolic 102–155; BP diastolic 53–100; PULSE 76–173; RESP 12–20; TEMP 36.1–37.1; O2SAT 94–98
[2025-04-09 06:13] LABS: Basophils % (Auto) 0 % (0-2.5); Eosinophils # (Auto) 0.1 Thou/mm3 (0.0-0.5); Eosinophils % (Auto) 2 % (0-10); Immature Granulocytes % (Auto) 0 % (0-0); Immature Granulocytes Auto 0.03 Thou/mm3 (0.00-0.00); Lymphocytes # (Auto) 0.9 Thou/mm3 (1.0-4.8); Lymphocytes % (Auto) 13 % (10-50); Mean Corpuscular HGB Conc 31.6 g/dl (31.0-37.0); Mean Corpuscular Hemoglobin 24.8 pg (25.0-35.0); Mean Corpuscular Volume 78 fL (80-100); Monocytes # (Auto) 0.8 Thou/mm3 (0.0-0.8); Monocytes % (Auto) 12 % (0-12); Neutrophils # (Auto) 5.3 Thou/mm3 (1.8-7.7); Neutrophils % (Auto) 73 % (37-80); Nucleated Red Blood Cell % 0 /100 WBC (0); Platelet Count 256 Thou/mm3 (140-440); RDW Standard Deviation 52.6 fL (36.4-46.3); Red Blood Count 3.19 Miln/mm3 (4.00-5.20); White Blood Count 7.3 Thou/mm3 (3.6-11.0)
[2025-04-09 06:16] LABS: Hemoglobin 7.9 g/dL (12.0-16.0)
[2025-04-09 06:40] LABS: Anion Gap 8 (7-16); BUN/Creatinine Ratio 31 Ratio (12-20); Blood Urea Nitrogen 28 mg/dL (9-23); Carbon Dioxide 26.4 mMol/L (20.0-31.0); Chloride 104 mMol/L (98-107); Creatinine (Component) 0.9 mg/dL (0.6-1.3); Estimated Creatinine Clearance 43.2 mL/min (>60); Glucose 113 mg/dL (74-106); Osmolality,Calculated 282 (275-295); Potassium 4.2 mMol/L (3.4-5.1); Sodium 138 mMol/L (136-145); eGFR > 60 See Note
--- NOTE | 2025-04-09 06:41 | EKG_ITS ---
[facility] Test Date: 2025-04-09 Pat Name: SEPIDEH COKER [facility] Gender[facility] Sales Advisor: ZAHRA : [id number] Requested By: Yumiko Hurtado Order Number: [id number] Reading MD: Yumiko Hurtado Measurements Intervals [place] Rate: 135 P: SD: QRS: 84 QRSD: 89 T: -10 QT: 275 QTc: 412 Interpretive Statements ATRIAL FIBRILLATION WITH RAPID VENTRICULAR RESPONSE ABNORMAL QRS-T ANGLE Compared to ECG 04/07/2025 16:49:16 Myocardial infarct finding no longer present /[id number].pdf
[2025-04-09] MEDS: METOPROLOL TARTRATE INJ 1 MG/ML AMP 5 ML 5 MG IVP (06:46)
--- NOTE | 2025-04-09 06:53 | EVENTNT_ITS ---
Documentation for date of: 04/09/25 Event Note Event Note: Around 6:37am, BUSINESS DEVELOPMENT CONSULTANT called for afib with RVR. Patient alert and orientated, not in marisela acute distress. HR in the 150s, SBP in the 180s. EKG confirmed afib with RVR. Patient was given 5mg push of metoprolol, and HR improved to 130s. Progress notes reviewed, and will restart home metoprolol if BP can tolerate. I have reviewed and discussed the patient's care with my attending, Dr. Navarro, Yumiko Hurtado MD PGY-3
[2025-04-09] MEDS: METOPROLOL TARTRATE INJ 1 MG/ML AMP 5 ML 2.5 MG IVP (07:05)
[2025-04-09 08:57] LABS: Phosphorous 2.9 mg/dL (2.4-5.1)
[2025-04-09] MEDS: FUROSEMIDE INJ 10 MG/ML 4ML VIAL 40 MG IVP (09:49)
[2025-04-09] MEDS: cefTRIAXone/D5w 1gm IV premix 1 GM/50 ML BAG IV (09:50)
[2025-04-09] MEDS: APIXABAN 2.5 MG TABLET 5 MG PO ×2 (09:50→20:47)
--- NOTE | 2025-04-09 09:53 | ESPR_ITS ---
Documentation for date of: 04/09/25 Subjective Subjective Interval history: Patient seen and examined with son at bedside. Early this morning, she had RR for A-fib with RVR. Stated her heart rate went up while she tried hard to pass stool. Heart rate controlled with METOPROLOL IV push. Remained asymptomatic without chest pain or shortness of breath throughout the event. Feels well today. * She still feels constipated, added bowel reg. * Had 2+ mikie LE edema, 24H urine 1.6L, -1.2L net negative, normal K and renal function, will continue with LASIX 40 daily. * Recommended GABAPENTIN for peripheral neuropathy as noted on exam (LE pain) * HR 88, BP 118/80, started METOPROLOL SUCC 100 mg daily as tolerated, held IV METOPROLOL * If RR again, may give METOP 50 mg X1 and increase METOP to 100 mg daily * Recommended treating anemia, Hgb 7.9, no signed of bleed, had postive occult in Dec 2024, consider occult blood test this time, transfuse if Hgb <8. Exam Vital Signs Temp Pulse Resp BP Pulse Ox O2 Del Method 97.8 F 88 20 118/80 97 Room Air 04/09/25 07:20 04/09/25 09:49 04/09/25 07:20 04/09/25 09:49 04/09/25 07:20 04/09/25 04:00 Narrative Exam General: Alert and oriented x3. In no acute distress. Eyes: Pupils are equal and reactive to light bilaterally. HEENT: Atraumatic, normocephalic. No JVD noted. Mucosa moist. Cardiovascular: Normal S1 and S2. Irregularly irregular, 2 or 6 systolic murmur heard in the right sternal border as well as the apex, no rubs and gallops. 2+ bilateral lower extremity edema extending above the knee, tenderness over mikie shins. Respiratory: No respiratory distress. Lungs are clear to auscultation bilaterally but decreased at the bases with occasional crackles. Abdomen: Soft, nontender, nondistended. Skin: No rash. Warm to touch. Musculoskeletal: No gross injuries. Able to move all 4 extremities. Neuro: Alert and oriented x3. No focal neuro deficits. Psych: Normal affect and mood Objective Labs 04/11/25 05:34 04/11/25 05:34 Labs: Laboratory Results - last 24 hr 04/08/25 04/09/25 20:10 05:16 WBC 7.3 RBC 3.19 L Hgb 7.9 L 7.9 L Hct 24.8 L 25.0 L MCV 78 L MCH 24.8 L MCHC 31.6 RDW Std Deviation 52.6 H Plt Count 256 D Neut % (Auto) 73 Lymph % (Auto) 13 [place] % (Auto) 12 Eos % (Auto) 2 Baso % (Auto) 0 Neut # (Auto) 5.3 Lymph # (Auto) 0.9 L [place] # (Auto) 0.8 Eos # (Auto) 0.1 Baso # (Auto) 0.0 Immature Gran # (Auto) 0.03 H Absolute Nucleated RBC 0.00 Immature Gran % 0 Nucleated RBC % 0 Sodium 138 Potassium 4.2 D Chloride 104 Carbon Dioxide 26.4 Anion Gap 8 BUN 28 H Creatinine 0.9 Estim Creat Clear Calc 43.2 L eGFR > 60 BUN/Creatinine Ratio 31 H Glucose 113 H Calculated Osmolality 282 Calcium 8.0 L Phosphorus 2.9 Magnesium 2.0 Quality Measures Quality Measures none Advance care planning discussed with:: patient Assessment & Plan Assessment Current Active Medications: Generic Name Dose Route Start Last Admin Trade Name Freq PRN Reason Stop Dose Admin Apixaban 5 mg 04/07/25 21:00 04/09/25 09:50 Apixaban 2.5 Mg Tablet PO 05/07/25 20:59 5 mg BID SHANTA Administration Furosemide 40 mg 04/08/25 09:00 04/09/25 09:49 Furosemide Inj 10 Mg/Ml 4ml Vial IVP 05/08/25 08:59 40 mg QDAY SHANTA Administration Ceftriaxone Sodium/Dextrose 1 gm in 50 mls @ 100 mls/hr 04/07/25 19:15 04/09/25 09:50 Rocephin/D5w 1gm Iv Premix IV 04/14/25 19:14 100 mls/hr QDAY SHANTA Administration Ferric Sodium Gluconate 125 mg 110 mls @ 110 mls/hr 04/08/25 15:30 04/08/25 16:49 / Sodium Chloride IV 04/10/25 09:01 110 mls/hr QDAY SHANTA Administration Meclizine HCl 12.5 mg 04/07/25 22:30 04/07/25 23:12 Meclizine Hcl 25 Mg Tablet PO 05/08/25 08:59 12.5 mg BID PRN Administration DIZZINESS Melatonin 3 mg 04/07/25 22:30 04/07/25 23:13 Melatonin 3 Mg Tablet PO 05/08/25 20:59 3 mg HS PRN Administration INSOMNIA Metoprolol Succinate 50 mg 04/08/25 13:45 04/08/25 14:57 Metoprolol Succinate Xl 25 Mg Tabcr PO 05/08/25 13:44 Not Given QDAY SHANTA Metoprolol Succinate 100 mg 04/09/25 11:00 Metoprolol Succinate Xl 25 Mg Tabcr PO 05/09/25 10:59 QDAY SHANTA Metoprolol Tartrate 2.5 mg 04/09/25 07:00 04/09/25 07:05 Metoprolol Tartrate Inj 1 Mg/Ml Amp 5 Ml IVP 05/09/25 06:59 2.5 mg Q8HR SHANTA Administration Plan A 89-year-old female with a past medical history of essential hypertension, GI bleed, anemia secondary to diverticulosis in 2019, osteoarthritis GERD presented to the emergency department for worsening bilateral lower extremity swelling. 1. New onset atrial fibrillation with RVR 2. Acute CHF exacerbation-systolic versus diastolic? 3. Severe anemia with hemoglobin of 7.9 4. Essential hypertension 5. History of GI bleed with history of diverticulosis in 2019 6. Iron deficiency anemia 7. Osteoarthritis 8. GERD 9. Neuropathy-autonomic? Patient presented with new onset paroxysmal atrial fibrillation with RVR with a heart rate of around 130-120 bpm. EKG confirmed the atrial fibrillation. Patient was started on diltiazem drip at 5 mg/h and now rate is controlled between 60 to 80 bpm. Patient blood pressure appears to be stable. Recommended to stop the diltiazem drip 2 hours after starting metoprolol XL 50 mg once daily. Can also start with metoprolol 25 mg once daily for now and give an additional dose of the blood pressure is permissible. Patient potassium is 3.5 recommend to replace with 60 mg oral potassium and also to keep potassium greater than 4 magnesium greater than 2.0 at all times. Heparin drip for anticoagulation if no contraindications of any acute GI bleed and will need Eliquis later if hemoglobin stable as the chads Vascor is high. Patient appears to have new onset CHF exacerbation-unclear if systolic versus diastolic. Patient does have 2+ lower extremity edema bilaterally. BNP elevated at 379 and as well as chest x-ray shows mild vascular congestion. Recommend to start diuresis with Lasix 40 mg IV once daily and keep net -1 to 2 L/day. Monitor renal function closely. Strict input output Daily weights and 2 g sodium diet. Echocardiogram ordered and will follow-up the results to confirm systolic versus diastolic congestive heart failure. Patient does have systolic congestive heart failure then patient will need goal- directed medical therapy with beta-camilla, Entresto and spironolactone based on her blood pressure. Severe anemia with hemoglobin of 7.9. Iron studies shows really low iron at 14 and low saturation at 4% with elevated TIBC at 389. Discussed with the primary team to give patient IV iron daily for now and further workup to rule out any kind of acute GI bleed or hemolysis. Patient will need to be on anticoagulation given her new onset paroxysmal atrial fibrillation with RVR. 04/09/2025 Had RR overnight for AFIB with RVR while straining. HR improved with IV METOP pushes. HR 88, BP 118/80. Asymptomatic with chest pain or sob. ? Started METOP SUCC 100 mg daily, will increase dose if HR uncontrolled and BP tolerates. * If RR again, may give METOP 50 mg X1 and increase METOP to 100 mg daily. LE edema improved slighted, 2+ today, lungs clear, good urine output, ECHO showed EF 35-40% with mod reduced LV function, mod RA dilitation, mild LA dilitation mild mac, mild-mod MR, mild AV sclerosis w/o stenosis. Renal function and potassium normal. ? Continue LASIX 40 mg and fluid restrictions ? Will need close cardiology follow-up ? Recommended GABAPENTIN for peripheral neuropathy Constipated, had small brown stool 04/08, reports straining hard earlier this morning, likely cause for her to go. ? Started bowel regimen Hgb 7.9, no signs of active bleed, had positive occult blood test from previous admission on December 2024 ? Transfuse if Hgb less than 8 ? Recommended anemia workup, including occult blood test Management of rest of the medical conditions as per primary team and other consultants. Thank you for the consult and allowing me to participate in the care of the patient. Cardiology will continue to follow. Thank you for the opportunity to participate in the patient's care. Case was discussed with attending, Dr. Hanson. Marybeth De Paz DO PGYI Attending Provider Attestation/Addendum I have personally seen and examined the patient separately on the above date of service and discussed the plan of care with the resident. I reviewed the resident Dr. Marybeth De Paz consultation progress note and agree with the resident findings and plan in the note above and have also edited the documentation to reflect my findings and plan. Armando Hanson M.D. Interventional Cardiology
[2025-04-09] MEDS: FERRIC SOD GLUC INJ 125 MG in SODIUM CHLORIDE 0.9% 100 ML 110 MG IV (09:58)
[2025-04-09] MEDS: METOPROLOL SUCCINATE XL 25 MG TABCR 100 MG PO (11:23)
[2025-04-09] MEDS: bisacodyL 5 MG TABEC PO (11:24)
[2025-04-09] MEDS: POLYETHYLENE GLYCOL 17 GM PACKET PO (11:24)
[2025-04-09] MEDS: GABAPENTIN 100 MG CAPSULE PO (12:34)
--- NOTE | 2025-04-09 15:45 | ESPR_ITS ---
Documentation for date of: 04/09/25 Subjective Subjective Interval history: 89-year-old female patient with past medical history of hypertension, diabetes mellitus, coronary artery disease, arthritis on steroid injections, prediabetes, came to the ED due to progressive bilateral leg swelling associated with shortness of breath. Patient was found to have new onset CHF and A-fib with RVR. BNP was 379, EKG showed A-fib with RVR with no ischemic changes, troponin was within normal limits x 2. Patient was started on diltiazem however it was switched to metoprolol, after that patient developed A-fib with RVR again in which the dose of metoprolol was increased and was given IV metoprolol x 1.. At this time patient on Eliquis 5 mg twice daily, metoprolol 100 mg p.o. daily Lasix 40 mg IV daily. Overnight patient developed A-fib with RVR, heart rate reached to 170, patient was started on metoprolol IV 5 mg which brought down the heart rate to 120, patient was started oral metoprolol 100 mg p.o. daily as per cardiology recommendations. On examination today patient was found to have potassium, magnesium, phosphate levels, hemoglobin at baseline was 10.8 however now it is 7.9 most likely secondary to overload. Patient denied any new symptoms except of small rash on the right medial side of the ankle joint. Denied any fever or chills. Patient was started on ceftriaxone hide on by the night team for treatment of UTI, no need for antibiotics at this time. Today we will order for the patient PT evaluation, and to start the patient on gabapentin as the patient was complaining of bilateral lower extremity tenderness Exam Vital Signs Temp Pulse Resp BP Pulse Ox O2 Del Method 98.7 F 99 18 106/61 94 L Room Air 04/09/25 08:00 04/09/25 11:53 04/09/25 08:00 04/09/25 11:23 04/09/25 08:00 04/09/25 04:00 Narrative Exam GEN: AOx3, Bhutanese speaker, able to speak full sentences HEENT: NC/AC, PERRLA, oral mucosa moist, neck supple CVS: RRR, S1-S2 present, no murmurs appreciated RESP: CTAB GI: soft,non distended, non tender, NBS MSK: able to move all 4 limbs, +2 lower extremity edema SKIN: Right ankle medial side winston redness, no visible ulcer, no discharge, mild hotness and tenderness. MAINTENANCE GROUNDMAN: CN II-XII and Sensation grossly intact. Objective Labs 04/09/25 05:16 04/09/25 05:16 Labs: Laboratory Results - last 24 hr 04/08/25 04/09/25 20:10 05:16 WBC 7.3 RBC 3.19 L Hgb 7.9 L 7.9 L Hct 24.8 L 25.0 L MCV 78 L MCH 24.8 L MCHC 31.6 RDW Std Deviation 52.6 H Plt Count 256 D Neut % (Auto) 73 Lymph % (Auto) 13 [place] % (Auto) 12 Eos % (Auto) 2 Baso % (Auto) 0 Neut # (Auto) 5.3 Lymph # (Auto) 0.9 L [place] # (Auto) 0.8 Eos # (Auto) 0.1 Baso # (Auto) 0.0 Immature Gran # (Auto) 0.03 H Absolute Nucleated RBC 0.00 Immature Gran % 0 Nucleated RBC % 0 Sodium 138 Potassium 4.2 D Chloride 104 Carbon Dioxide 26.4 Anion Gap 8 BUN 28 H Creatinine 0.9 Estim Creat Clear Calc 43.2 L eGFR > 60 BUN/Creatinine Ratio 31 H Glucose 113 H Calculated Osmolality 282 Calcium 8.0 L Phosphorus 2.9 Magnesium 2.0 Quality Measures Quality Measures none Advance care planning discussed with:: patient and child Assessment & Plan Assessment Current Active Medications: Generic Name Dose Route Start Last Admin Trade Name Freq PRN Reason Stop Dose Admin Apixaban 5 mg 04/07/25 21:00 04/09/25 09:50 Apixaban 2.5 Mg Tablet PO 05/07/25 20:59 5 mg BID SHANTA Administration Bisacodyl 5 mg 04/09/25 10:00 04/09/25 11:24 Bisacodyl 5 Mg Tabec PO 05/09/25 09:59 5 mg QDAY SHANTA Administration Protocol Furosemide 40 mg 04/08/25 09:00 04/09/25 09:49 Furosemide Inj 10 Mg/Ml 4ml Vial IVP 05/08/25 08:59 40 mg QDAY SHANTA Administration Gabapentin 100 mg 04/09/25 11:30 04/09/25 12:34 Gabapentin 100 Mg Capsule PO 05/09/25 11:29 100 mg QDAY SHANTA Administration Ceftriaxone Sodium/Dextrose 1 gm in 50 mls @ 100 mls/hr 04/07/25 19:15 04/09/25 09:50 Rocephin/D5w 1gm Iv Premix IV 04/14/25 19:14 100 mls/hr QDAY SHANTA Administration Ferric Sodium Gluconate 125 mg 110 mls @ 110 mls/hr 04/08/25 15:30 04/09/25 09:58 / Sodium Chloride IV 04/10/25 09:01 110 mls/hr QDAY SHANTA Administration Meclizine HCl 12.5 mg 04/07/25 22:30 04/07/25 23:12 Meclizine Hcl 25 Mg Tablet PO 05/08/25 08:59 12.5 mg BID PRN Administration DIZZINESS Melatonin 3 mg 04/07/25 22:30 04/07/25 23:13 Melatonin 3 Mg Tablet PO 05/08/25 20:59 3 mg HS PRN Administration INSOMNIA Metoprolol Succinate 100 mg 04/09/25 11:00 04/09/25 11:23 Metoprolol Succinate Xl 25 Mg Tabcr PO 05/09/25 10:59 100 mg QDAY SHANTA Administration Metoprolol Tartrate 2.5 mg 04/09/25 07:00 04/09/25 07:05 Metoprolol Tartrate Inj 1 Mg/Ml Amp 5 Ml IVP 05/09/25 06:59 2.5 mg Q8HR SHANTA Administration Polyethylene Glycol 17 gm 04/09/25 10:00 04/09/25 11:24 Polyethylene Glycol 17 Gm Packet PO 05/09/25 09:59 17 gm QDAY SHANTA Administration Plan Summary:89-year-old female patient with past medical history of hypertension, diabetes mellitus, coronary artery disease, arthritis on steroid injections, prediabetes, came to the ED due to progressive bilateral leg swelling associated with shortness of breath. Patient was found to have new onset CHF and A-fib with RVR. BNP was 379, EKG showed A-fib with RVR with no ischemic changes, troponin was within normal limits x 2. Assessment and plan #Atrial Fibrillation with RVR #Heart Failure Mild heart failure on CXR, elevated BNP 379, symptoms of SOB and bilateral LE edema; orthopnea no known prior HF diagnosis New-onset AF with RVR (HR 130 bpm), [id number] Score: 4 (age >=5, female, probable HF), EKG confirmed Plan: - Start the patient on metoprolol succinate 100 mg p.o. daily - Eliquis 5 mg p.o. twice daily - Monitor telemetry and HR response closely - TTE to assess cardiac structure/function - Lasix 40 mg IV daily - Monitor I/Os and daily weights - Sodium restriction 2 g daily ?Fluid restriction to 1500 mL daily - Monitor electrolytes and renal function daily - Initiate guideline-directed medical therapy (GDMT) based on EF upon discharge - Cardiology consult, recommendation patient #Anemia Assessment: Hb 8.9, chronicity unclear; no overt bleeding reported, unclear etiology Plan: - Trend CBC; assess iron studies, B12, folate - Monitor signs of acute blood loss #UTI Plan: - Ceftriaxone 1 g daily #Bilateral lower extremity pain most likely secondary to: Neuropathy versus venous insufficiency #Bilateral lower extremity neuropathy #Bilateral lower extremity redness insufficiency #Right ankle cellulitis Plan ? Start the patient on gabapentin ? Patient already on ceftriaxone we will continue to monitor, will adjust or add coverage for MRSA as needed. Hospital Maintenance: FEN: Cardiac diet, with fluid restriction 1500 mL/day DVT ppx: Heparin subcu GI ppx: Protonix twice daily IV lines: PIV Hall: None Code status: Full code Dispo: Telemetry - Patient's plan and care discussed with my attending, Dr. Nicolas Peralta MD Internal Medicine PGY-2 Attending Provider Attestation/Addendum I attest that I was physically present for the evaluation, physical examination, lab and imaging review of the patient with the residents. I discussed the case with the residents and agree with the findings and plans of care as documented above. Jyoti Guevara MD
[2025-04-10] VITALS (14 sets, daily range): BP systolic 104–118; BP diastolic 64–78; PULSE 83–114; RESP 17–22; TEMP 21.1–37.1; O2SAT 94–97
[2025-04-10 06:16] LABS: Basophils % (Auto) 0 % (0-2.5); Eosinophils # (Auto) 0.1 Thou/mm3 (0.0-0.5); Eosinophils % (Auto) 1 % (0-10); Hematocrit 24.6 % (36.0-46.0); Immature Granulocytes % (Auto) 1 % (0-0); Immature Granulocytes Auto 0.04 Thou/mm3 (0.00-0.00); Lymphocytes # (Auto) 1.1 Thou/mm3 (1.0-4.8); Lymphocytes % (Auto) 14 % (10-50); Mean Corpuscular HGB Conc 31.7 g/dl (31.0-37.0); Mean Corpuscular Hemoglobin 24.8 pg (25.0-35.0); Mean Corpuscular Volume 78 fL (80-100); Monocytes # (Auto) 0.9 Thou/mm3 (0.0-0.8); Monocytes % (Auto) 12 % (0-12); Neutrophils # (Auto) 5.8 Thou/mm3 (1.8-7.7); Neutrophils % (Auto) 73 % (37-80); Nucleated Red Blood Cell # 0.02 Thou/mm3 (0.00-0.00); Nucleated Red Blood Cell % 0 /100 WBC (0); Platelet Count 248 Thou/mm3 (140-440); RDW Standard Deviation 51.9 fL (36.4-46.3); Red Blood Count 3.15 Miln/mm3 (4.00-5.20); White Blood Count 7.9 Thou/mm3 (3.6-11.0)
[2025-04-10 06:18] LABS: Hemoglobin 7.8 g/dL (12.0-16.0)
[2025-04-10 06:36] LABS: Anion Gap 6 (7-16); BUN/Creatinine Ratio 27 Ratio (12-20); Blood Urea Nitrogen 19 mg/dL (9-23); Calcium 7.9 mg/dL (8.3-10.6); Chloride 102 mMol/L (98-107); Creatinine (Component) 0.7 mg/dL (0.6-1.3); Estimated Creatinine Clearance 55.5 mL/min (>60); Glucose 109 mg/dL (74-106); Magnesium 1.8 mg/dL (1.6-2.6); Osmolality,Calculated 275 (275-295); Phosphorous 2.6 mg/dL (2.4-5.1); Potassium 3.9 mMol/L (3.4-5.1); Sodium 136 mMol/L (136-145); eGFR > 60 See Note
[2025-04-10 08:06] LABS: Ferritin 43 ng/mL (7.3-270.7); Iron 98 mcg/dL (50-170); Percent Iron Saturation 28 % (20-55); Total Iron Binding Capacity 340 mcg/dL (250-425); Unsaturated Iron Binding 242 (225-295)
[2025-04-10 08:17] LABS: Path Review Blood Smear Sent to Pathologist
[2025-04-10] MEDS: cefTRIAXone/D5w 1gm IV premix 1 GM/50 ML BAG IV (08:39)
[2025-04-10] MEDS: POTASSIUM CHLORIDE 20 mEq TABCR PO (08:39)
[2025-04-10] MEDS: bisacodyL 5 MG TABEC PO (08:40)
[2025-04-10] MEDS: APIXABAN 2.5 MG TABLET 5 MG PO ×2 (08:40→21:21)
[2025-04-10] MEDS: METOPROLOL SUCCINATE XL 25 MG TABCR 100 MG PO (08:40)
[2025-04-10] MEDS: POLYETHYLENE GLYCOL 17 GM PACKET PO (08:40)
[2025-04-10] MEDS: GABAPENTIN 100 MG CAPSULE PO (08:41)
[2025-04-10] MEDS: FUROSEMIDE INJ 10 MG/ML 4ML VIAL 40 MG IVP (08:41)
[2025-04-10] MEDS: Magnesium Sulfate 2 GM Ivpb 2 GM/50 ML BAG IV (08:57)
[2025-04-10] MEDS: FERRIC SOD GLUC INJ 125 MG in SODIUM CHLORIDE 0.9% 100 ML 110 MG IV (10:06)
--- NOTE | 2025-04-10 12:33 | ESPR_ITS ---
Documentation for date of: 04/10/25 Subjective Subjective Interval history: Patient examined at bedside today. Telemetry removed, patient is rate controlled at this time still in fib. No overnight events. Patient reports she is doing well. She is wondering when she can go home. Family is requesting sedation to have social work to speak with them in regards to some at home needs for the patient. She has not had a bowel movement in 2 days despite having bisacodyl and MiraLAX. No other complaints this time Exam Vital Signs Temp Pulse Resp BP Pulse Ox O2 Del Method 97.8 F 86 19 112/68 97 Room Air 04/10/25 12:00 04/10/25 12:00 04/10/25 12:00 04/10/25 12:00 04/10/25 12:00 04/10/25 12:00 Narrative Exam General: AAOx3, NAD, obese Angolan-speaking female HEENT: Moist mucous membranes, conjunctiva clear, EOMI, PERRLA, Cardiovascular: S1, S2, radial pulses +2 bilat, irregularly irregular Pulmonary: CTAB bilat no cough, no wheezing GI: No tenderness to light or deep palpitation, no guarding, rigidity, rebound tenderness or distension Extremities: Trace edema seen in lower extremities, dorsalis pedis pulses +2 bilaterally, venous stasis, cellulitis improving right lower extremity Neuro: AAOx3, no focal motor or sensory deficits in the UE or LE bilat Psych: Good judgement, thought and behavior. Cooperative Objective Labs 04/10/25 04:53 04/10/25 04:53 Labs: Laboratory Results - last 24 hr 04/10/25 04:53 WBC 7.9 RBC 3.15 L Hgb 7.8 L Hct 24.6 L MCV 78 L MCH 24.8 L MCHC 31.7 RDW Std Deviation 51.9 H Plt Count 248 Neut % (Auto) 73 Lymph % (Auto) 14 [place] % (Auto) 12 Eos % (Auto) 1 Baso % (Auto) 0 Neut # (Auto) 5.8 Lymph # (Auto) 1.1 [place] # (Auto) 0.9 H Eos # (Auto) 0.1 Baso # (Auto) 0.0 Immature Gran # (Auto) 0.04 H Absolute Nucleated RBC 0.02 H Immature Gran % 1 H Nucleated RBC % 0 Smear Path Review Sent to Pathologist Sodium 136 Potassium 3.9 Chloride 102 Carbon Dioxide 28.0 Anion Gap 6 L BUN 19 Creatinine 0.7 Estim Creat Clear Calc 55.5 L eGFR > 60 BUN/Creatinine Ratio 27 H Glucose 109 H Calculated Osmolality 275 Calcium 7.9 L Phosphorus 2.6 Magnesium 1.8 Iron 98 TIBC 340 Iron Saturation 28 Unsat Iron Binding 242 Ferritin 43 Quality Measures Quality Measures none Advance care planning discussed with:: patient Assessment & Plan Assessment Current Active Medications: Generic Name Dose Route Start Last Admin Trade Name Freq PRN Reason Stop Dose Admin Apixaban 5 mg 04/07/25 21:00 04/10/25 08:40 Apixaban 2.5 Mg Tablet PO 05/07/25 20:59 5 mg BID SHANTA Administration Bisacodyl 5 mg 04/09/25 10:00 04/10/25 08:40 Bisacodyl 5 Mg Tabec PO 05/09/25 09:59 5 mg QDAY SHANTA Administration Protocol Furosemide 40 mg 04/08/25 09:00 04/10/25 08:41 Furosemide Inj 10 Mg/Ml 4ml Vial IVP 05/08/25 08:59 40 mg QDAY SHANTA Administration Gabapentin 100 mg 04/09/25 11:30 04/10/25 08:41 Gabapentin 100 Mg Capsule PO 05/09/25 11:29 100 mg QDAY SHANTA Administration Ceftriaxone Sodium/Dextrose 1 gm in 50 mls @ 100 mls/hr 04/07/25 19:15 04/10/25 08:39 Rocephin/D5w 1gm Iv Premix IV 04/14/25 19:14 100 mls/hr QDAY SHANTA Administration Meclizine HCl 12.5 mg 04/07/25 22:30 04/07/25 23:12 Meclizine Hcl 25 Mg Tablet PO 05/08/25 08:59 12.5 mg BID PRN Administration DIZZINESS Melatonin 3 mg 04/07/25 22:30 04/07/25 23:13 Melatonin 3 Mg Tablet PO 05/08/25 20:59 3 mg HS PRN Administration INSOMNIA Metoprolol Succinate 100 mg 04/09/25 11:00 04/10/25 08:40 Metoprolol Succinate Xl 25 Mg Tabcr PO 05/09/25 10:59 100 mg QDAY SHANTA Administration Polyethylene Glycol 17 gm 04/09/25 10:00 04/10/25 08:40 Polyethylene Glycol 17 Gm Packet PO 05/09/25 09:59 17 gm QDAY SHANTA Administration Plan Assessment 89-year-old female patient with past medical history of hypertension, diabetes mellitus, coronary artery disease, arthritis on steroid injections, prediabetes, came to the ED due to progressive bilateral leg swelling associated with shortness of breath. Patient was found to have new onset CHF and A-fib with RVR. BNP was 379, EKG showed A-fib with RVR with no ischemic changes, troponin was within normal limits x 2. At this time patient is pending PT evaluation and community mental health social worker. #Atrial Fibrillation with RVR #Acute exacerbation of HFrEF, EF 35 to 40% Echo 04/08/2025: Moderately reduced LV function with an EF of 35 to 40%. Diastolic dysfunction present but cannot be graded due to the A-fib Normal RV size and function. Estimated RVSP mild to moderately elevated. Moderate TR. Mild MAC and mild to moderate MR Moderately dilated RA and mildly dilated LA. Mild aortic valve sclerosis without stenosis CHADVASC: 5 HAS-BLED: 2 At this time patient's blood pressure is a bit soft, will hold on adding further GDMT therapy today, however will add more upon DC Patient continues to be rate controlled Patient is 1.7 L negative net, and is not on oxygen at this time Plan: - Cardiology consulted, appreciate recs - Continue with metoprolol succinate 100 mg p.o. daily - Eliquis 5 mg p.o. twice daily - Monitor telemetry and HR response closely - Lasix 40 mg IV daily - Monitor I/Os and daily weights - Sodium restriction 2 g daily - Fluid restriction to 1500 mL daily - Monitor electrolytes and renal function daily - K and Mag above 4 and 2 respectively #Iron deficiency anemia Initial iron studies show low iron Patient's hemoglobin is 7.8 today, will transfuse 1 unit Folate and B12 unremarkable Patient could be just iron deficient however will further workup Ferritin normalized after being treated with IV iron Plan: - Trend CBC ?Follow-up with peripheral blood smear - FOBT ? Post transfusion H&H #UTI Will transition to oral antibiotics at some point Patient reported being symptomatic earlier in admission Plan: - Continue with ceftriaxone 1 g daily (04/07- #Bilateral lower extremity pain most likely secondary to: Neuropathy versus venous insufficiency #Bilateral lower extremity neuropathy #Bilateral lower extremity redness insufficiency #Right ankle cellulitis We will follow-up with MRSA screen to decide if we need to broaden antibiotic coverage Plan: ? Continue with gabapentin ? Patient already on ceftriaxone we will continue to monitor, will adjust or add coverage for MRSA as needed. #Health Maintenance Disposition: Telemetry DVT prophylaxis: Heparin subcu GI prophylaxis: Protonix Diet: Cardiac CODE STATUS: Full Patient seen and care discussed with my attending physician, Dr. Paola Farfan, PGY-1 Attending Provider Attestation/Addendum I attest that I was physically present for the evaluation, physical examination, lab and imaging review of the patient with the residents. I discussed the case with the residents and agree with the findings and plans of care as documented above. Jyoti Guevara MD
--- NOTE | 2025-04-10 13:11 | PC.SS ---
SS met pt, daughter, and Annel CABRERA went over request for DME equipment; pt would like hospital bed and 3-1 commode; medical team has requested PT; ROCIO met with pt bedside to provide information for medicare; Annel CABRERA interpreted information; pt was provided Armenian copy of IMM form
[2025-04-11] VITALS (9 sets, daily range): BP systolic 97–140; BP diastolic 53–98; PULSE 74–114; RESP 16–19; TEMP 36.1–36.8; O2SAT 95–100; BMI 34.9
[2025-04-11 01:45] LABS: Hematocrit 28.1 % (36.0-46.0); Hemoglobin 9.2 g/dL (12.0-16.0)
[2025-04-11 06:11] LABS: Basophils # (Auto) 0.1 Thou/mm3 (0.0-0.2); Basophils % (Auto) 1 % (0-2.5); Eosinophils # (Auto) 0.1 Thou/mm3 (0.0-0.5); Eosinophils % (Auto) 1 % (0-10); Hematocrit 28.4 % (36.0-46.0); Hemoglobin 8.9 g/dL (12.0-16.0); Immature Granulocytes % (Auto) 1 % (0-0); Lymphocytes # (Auto) 0.9 Thou/mm3 (1.0-4.8); Lymphocytes % (Auto) 11 % (10-50); Mean Corpuscular HGB Conc 31.3 g/dl (31.0-37.0); Mean Corpuscular Hemoglobin 25.7 pg (25.0-35.0); Mean Corpuscular Volume 82 fL (80-100); Monocytes % (Auto) 12 % (0-12); Neutrophils # (Auto) 6.1 Thou/mm3 (1.8-7.7); Neutrophils % (Auto) 74 % (37-80); Nucleated Red Blood Cell % 0 /100 WBC (0); Platelet Count 297 Thou/mm3 (140-440); RDW Standard Deviation 53.5 fL (36.4-46.3); Red Blood Count 3.46 Miln/mm3 (4.00-5.20); White Blood Count 8.2 Thou/mm3 (3.6-11.0)
[2025-04-11 06:39] LABS: Alanine Aminotransferase 12 U/L (10-49); Albumin, Serum 3.6 gm/dL (3.4-4.8); Albumin/Globulin Ratio 1.1 (1.2-2.2); Alkaline Phosphatase 107 U/L (46-116); Anion Gap 6 (7-16); Aspartate Amino Transferase 22 U/L (0-34); BUN/Creatinine Ratio 27 Ratio (12-20); Bilirubin,Total 0.6 mg/dL (0.3-1.2); Blood Urea Nitrogen 19 mg/dL (9-23); Calcium 8.1 mg/dL (8.3-10.6); Calcium (Corrected) 8.4 mg/dL (8.5-10.1); Carbon Dioxide 28.8 mMol/L (20.0-31.0); Chloride 101 mMol/L (98-107); Creatinine (Component) 0.7 mg/dL (0.6-1.3); Estimated Creatinine Clearance 55.5 mL/min (>60); Globulin 3.3 gm/dL (2.3-3.5); Glucose 132 mg/dL (74-106); Magnesium 2.1 mg/dL (1.6-2.6); Osmolality,Calculated 276 (275-295); Phosphorous 3.2 mg/dL (2.4-5.1); Potassium 4.2 mMol/L (3.4-5.1); Sodium 136 mMol/L (136-145); Total Protein 6.9 gm/dL (5.7-8.2); eGFR > 60 See Note
[2025-04-11] MEDS: APIXABAN 2.5 MG TABLET 5 MG PO ×2 (09:22→20:47)
[2025-04-11] MEDS: cefTRIAXone/D5w 1gm IV premix 1 GM/50 ML BAG IV (09:23)
[2025-04-11] MEDS: METOPROLOL SUCCINATE XL 25 MG TABCR 100 MG PO (09:23)
[2025-04-11] MEDS: GABAPENTIN 100 MG CAPSULE PO (09:23)
[2025-04-11] MEDS: POLYETHYLENE GLYCOL 17 GM PACKET PO (09:24)
[2025-04-11] MEDS: bisacodyL 10 MG SUPP PR (09:24)
[2025-04-11] MEDS: FUROSEMIDE INJ 10 MG/ML 4ML VIAL 40 MG IVP (09:24)
--- NOTE | 2025-04-11 12:35 | PC.SS ---
Addendum entered by Radha Gill 04/11/25 16:23: SS spoke to Carolina from [facility] they are unable to accept pt due to not having beds available. SS spoke to Suzy lawrence who is aware and her choice is [facility]. [facility] has accepted on [facility]. SS spoke to Marcia from [facility] and informed SS patient's health insurance requires for to send d/c orders, summary, H &P, progress note, PT notes, and facesheet to patient's health insurance for authorization. Marica from provided fax# [phone] and phone# [phone] to [employer] for insurance approval. has sent inquiry to [facility] using [employer] and [employer] for insruance authorization. Addendum entered by Radha Gill 04/11/25 15:36: SS has sent inquiry to the local SNF using [employer]. Original Note: SS has met with pt and dtr to discuss d/c options for home or SNF. Dtr and pt are now requesting SNF for short term rehab. SS met with bedside nurse, Torri who states pt is not psych, anxiety, or depression medications (pt and dtr also confirmed). SNF: 1st choice is [facility] 2nd choice is [facility] 3rd choice is [facility] 4th choice is [address]
--- NOTE | 2025-04-11 14:20 | PD.RESDS ---
Planned Discharge Date 04/11/25 DS: Providers Provider Date of admission: 04/07/25 19:22 Primary care physician: Physician No Primary/Family Admitting Provider: Jean Navarro MD Attending Provider on Admission: Jyoti Guevara MD Consults: 04/07/25 19:15 Consult to Cardiology Routine Comment: CHF Consulting Provider: Mar Santos 04/09/25 14:20 Referral Physical Therapy Urgent Comment: Physician Instructions: Attending Provider on DC: Jyoti Guevara MD Discharging Provider: Jyoti Guevara MD DS: Diagnosis Problem List Completed Was Problem List Reviewed/Reconciled?: Yes Hospital Course Hospital Course Hospital course: Ivory is a 89-year-old female was admitted on April 07, 2025 for acute exacerbation of HFrEF and new onset A-fib with RVR. She had arrived to the ED with vital signs recorded as temp 98.8 F, HR 130 bpm, RR 18, BP 113/76 mmHg, saturation 95% on room air. Labs revealed WBC 7.7, Hb 8.9, Plt 379, Na 139, K 4.1, BUN 28, Creatinine 1.0, Glucose 126, BNP 379, Troponin negative. CXR showed mild heart failure. EKG revealed atrial fibrillation with RVR. Patient was started on Cardizem drip by ER physician. Patient was admitted by internal medicine for further management of A-fib and HFrEF. Cardizem drip had never been started for patient and patient was managed with IV beta-blockers and was then started on metoprolol XL 100 mg and patient continued to be rate controlled. While patient was on the floors, patient had echocardiogram done which showed HFrEF, EF 35 to 40%, diastolic dysfunction could not be graded due to patient being in atrial fibrillation, and mild to moderate RVSP elevation.patient was started on anticoagulation, Eliquis 5 mg twice a day due to [id number] being 5. Patient was being diuresed with 40 mg of IV Lasix in which patient was able to be net negative upon DC. Patient did not require oxygen upon discharge. Goal-directed medical therapy was attempted to be started on patient, however patient continued to have low blood pressure and AVANI/ARB, Entresto nor Jardiance was initiated at the time. We will have patient's inspector balance wheel motion initiate these therapies once patient can tolerate with blood pressure. Discharge Instructions: Follow up with Dr. Hanson, inspector balance wheel motion, within one week upon D/[address] [id number]. Call to make an appointment. Follow up with your PCP within one week I am prescribing you Eliquis, this is your blood thinner for your atrial fibrillation, take this pill twice a day I am prescribing you Metoprolol 100 mg XL, this is to control your heart rate, take this pill once a day. I will be prescribing you a water pill, Lasix 40 mg every day, speak with your primary care doctor or inspector balance wheel motion if there needs to be an adjustment in dose I will hold your lisinopril due to your blood pressure being low, speak with your PCP or inspector balance wheel motion on deciding to resuming your medicine I recommend you getting a blood pressure cuff to measure your blood pressure every day to manage your high blood pressure Take your medicines as prescribed Return to ER if your symptoms worsen or return Have your PCP continue to work up your anemia Problem List: #Atrial Fibrillation with RVR #Acute exacerbation of HFrEF, EF 35 to 40% #Iron deficiency anemia #UTI #Bilateral lower extremity pain most likely secondary to: Neuropathy versus venous insufficiency #Bilateral lower extremity neuropathy #Bilateral lower extremity redness insufficiency #Right ankle cellulitis Discharge summary was reviewed with my attending Dr. Paola Farfan, PGY-1 Time Spent with Patient Time attestation: Total time spent providing and/or coordinating discharge services: Time spent: Less than 30 minutes Exam Vital Signs Temp Pulse Resp BP Pulse Ox O2 Del Method O2 Flow Rate 97.0 F 99 19 99/53 L 98 Room Air 0 04/11/25 12:00 04/11/25 13:55 04/11/25 12:00 04/11/25 13:55 04/11/25 12:00 04/11/25 12:00 04/10/25 18:48 Narrative Exam General: AAOx3, NAD, obese Fijian-speaking female HEENT: Moist mucous membranes, conjunctiva clear, EOMI, PERRLA, Cardiovascular: S1, S2, radial pulses +2 bilat, irregularly irregular Pulmonary: CTAB bilat no cough, no wheezing GI: No tenderness to light or deep palpitation, no guarding, rigidity, rebound tenderness or distension Extremities: Trace edema seen in lower extremities, dorsalis pedis pulses +2 bilaterally, venous stasis, cellulitis improving right lower extremity Neuro: AAOx3, no focal motor or sensory deficits in the UE or LE bilat Psych: Good judgement, thought and behavior. Cooperative Discharge Plan Plan Patient Disposition: Xfer Skilled Nsg Fac (SNF) Care Plan Goals: Discharge Instructions: Follow up with Dr. Hanson, inspector balance wheel motion, within one week upon D/[place] [place] [address]. Call to make an appointment. Follow up with your PCP within one week I am prescribing you Eliquis, this is your blood thinner for your atrial fibrillation, take this pill twice a day I am prescribing you Metoprolol 100 mg XL, this is to control your heart rate, take this pill once a day. I will be prescribing you a water pill, Lasix 40 mg every day, speak with your primary care doctor or inspector balance wheel motion if there needs to be an adjustment in dose I will hold your lisinopril due to your blood pressure being low, speak with your PCP or inspector balance wheel motion on deciding to resuming your medicine I recommend you getting a blood pressure cuff to measure your blood pressure every day to manage your high blood pressure Take your medicines as prescribed Return to ER if your symptoms worsen or return Have your PCP continue to work up your anemia Prescriptions/Referrals Prescriptions/Med Rec: New furosemide [Lasix] 40 mg tablet 40 mg PO QDAY 30 Days Qty: 30 0RF Rx Instructions: Take one tablet once a day every day Eliquis 5 mg tablet 5 mg PO BID 30 Days Qty: 60 0RF Rx Instructions: Take one tablet by mouth twice a day every day metoprolol succinate 100 mg tablet extended release 24 hr 100 mg PO QDAY 30 Days Qty: 30 0RF Rx Instructions: Take this tablet once a day every day Continued cholecalciferol (vitamin D3) 25 mcg (1,000 unit) tablet 25 mcg PO DAILY Patient Comments: TAKE 1 TABLET BY MOUTH EVERY DAY FOR 90 DAYS meclizine 12.5 mg tablet 12.5 mg PO Q12H PRN (Reason: dizziness) Patient Comments: TAKE 1 TABLET BY MOUTH EVERY 12 HOURS NEEDED FOR 30 DAYS dexlansoprazole 30 mg capsule,biphase delayed releas 30 mg PO DAILY Patient Comments: TAKE 1 CAPSULE BY MOUTH ONCE DAILY Held lisinopril 10 mg tablet 10 mg PO DAILY Hold Instructions: resume with pcp/inspector balance wheel motion Patient Comments: TOME 1 TABLETA POR V A ORAL TODOS LOS D PARA 90 SANCHEZ Discontinued furosemide 20 mg tablet 20 mg PO DAILY Patient Comments: TOME RORY TABLETA POR V A ORAL A DIARIO POR 10 D Referrals: No Primary/Family,Physician [Primary Care Provider] - Patient/Caregiver Discharge Instructions Print Language: Fijian Stand Alone Forms: Lizzy Award Info., Patient Portal Info Letter Discharge Order Discharge Orders: Discharge (Routine); Ordered 04/11/25 Ordered By: Bong Farfan Quality Discharge Quality Measures VTE prophylaxis (Eliquis) Attestestation MD Attestation I attest that I was physically present for the evaluation, physical examination, lab and imaging review of the patient with the residents. I discussed the case with the residents and agree with the findings and plans of care as documented above. Jyoti Guevara MD
[2025-04-11 15:37] LABS: OBS Card Lot # 23001; OBS Developer Lot # 2300; OBS Performed By raccj; OBS QC OK? Yes; Occult Blood, Stool Negative (Negative)
--- NOTE | 2025-04-11 16:17 | PC.CC ---
PASRR Level 1 complete and downloaded; Level 2 not required.
--- NOTE | 2025-04-11 17:47 | ESPR_ITS ---
Documentation for date of: 04/11/25 Subjective Subjective Interval history: Examined on telemetry with daughter at bedside. Feels well today. Denies fever, chills, headaches, chest pain, sob, cough, GI or urinary symptoms. HR improved, 1 episode 114, generally in 90s to low 100s. BP 135/94. Remains afebrile, no leukocytosis. Transfuse 1 unit PRBC, Hgb 9.2 today, PLT 297. CHEM panel showing corrected calcium 8.4, otherwise WNL. Will continue with LASIX 40 mg daily, METOPROLOL SUCCINATE 100 mg daily. Will need close cardiology follow-up, cardiac optimization, and GDMT. Exam Vital Signs Temp Pulse Resp BP Pulse Ox O2 Del Method O2 Flow Rate 97.0 F 103 H 19 99/53 L 98 Room Air 0 04/11/25 12:00 04/11/25 16:00 04/11/25 12:00 04/11/25 13:55 04/11/25 12:00 04/11/25 12:00 04/10/25 18:48 Narrative Exam General: Alert and oriented x3. In no acute distress. Eyes: Pupils are equal and reactive to light bilaterally. HEENT: Atraumatic, normocephalic. No JVD noted. Mucosa moist. Cardiovascular: Normal S1 and S2. Irregularly irregular, 2 or 6 systolic murmur heard in the right sternal border as well as the apex, no rubs and gallops. 2+ bilateral lower extremity edema extending above the knee, tenderness over mikie shins. Respiratory: No respiratory distress. Lungs are clear to auscultation bilaterally but decreased at the bases with occasional crackles. Abdomen: Soft, nontender, nondistended. Skin: No rash. Warm to touch. Musculoskeletal: No gross injuries. Able to move all 4 extremities. Neuro: Alert and oriented x3. No focal neuro deficits. Psych: Normal affect and mood Objective Labs 04/11/25 05:34 04/11/25 05:34 Labs: Laboratory Results - last 24 hr 04/10/25 04/11/25 04/11/25 12:40 01:29 05:34 WBC 8.2 RBC 3.46 L Hgb 9.2 L 8.9 L Hct 28.1 L 28.4 L MCV 82 MCH 25.7 MCHC 31.3 RDW Std Deviation 53.5 H Plt Count 297 D Neut % (Auto) 74 Lymph % (Auto) 11 Culberson % (Auto) 12 Eos % (Auto) 1 Baso % (Auto) 1 Neut # (Auto) 6.1 Lymph # (Auto) 0.9 L [place] # (Auto) 1.0 H Eos # (Auto) 0.1 Baso # (Auto) 0.1 Immature Gran # (Auto) 0.10 H Absolute Nucleated RBC 0.00 Immature Gran % 1 H Nucleated RBC % 0 Sodium 136 Potassium 4.2 Chloride 101 Carbon Dioxide 28.8 Anion Gap 6 L BUN 19 Creatinine 0.7 Estim Creat Clear Calc 55.5 L eGFR > 60 BUN/Creatinine Ratio 27 H Glucose 132 H Calculated Osmolality 276 Calcium 8.1 L Corrected Calcium 8.4 L Phosphorus 3.2 Magnesium 2.1 Total Bilirubin 0.6 AST 22 ALT 12 Alkaline Phosphatase 107 Total Protein 6.9 Albumin 3.6 Globulin 3.3 Albumin/Globulin Ratio 1.1 L Stool Occult Blood Blood Type O Positive Antibody Screen NEGATIVE Crossmatch See Detail Blood Bank Wristband ID Yes 04/11/25 13:00 WBC RBC Hgb Hct MCV MCH MCHC RDW Std Deviation Plt Count Neut % (Auto) Lymph % (Auto) [place]bers[place] % (Auto) Eos % (Auto) Baso % (Auto) Neut # (Auto) Lymph # (Auto) [place] # (Auto) Eos # (Auto) Baso # (Auto) Immature Gran # (Auto) Absolute Nucleated RBC Immature Gran % Nucleated RBC % Sodium Potassium Chloride Carbon Dioxide Anion Gap BUN Creatinine Estim Creat Clear Calc eGFR BUN/Creatinine Ratio Glucose Calculated Osmolality Calcium Corrected Calcium Phosphorus Magnesium Total Bilirubin AST ALT Alkaline Phosphatase Total Protein Albumin Globulin Albumin/Globulin Ratio Stool Occult Blood Negative Blood Type Antibody Screen Crossmatch Blood Bank Wristband ID Quality Measures Quality Measures VTE prophylaxis (Eliquis) Advance care planning discussed with:: patient Assessment & Plan Assessment Current Active Medications: Generic Name Dose Route Start Last Admin Trade Name Freq PRN Reason Stop Dose Admin Apixaban 5 mg 04/07/25 21:00 04/11/25 09:22 Apixaban 2.5 Mg Tablet PO 05/07/25 20:59 5 mg BID SHANTA Administration Bisacodyl 5 mg 04/09/25 10:00 04/11/25 09:25 Bisacodyl 5 Mg Tabec PO 05/09/25 09:59 Not Given QDAY SHANTA Protocol Furosemide 40 mg 04/12/25 09:00 Furosemide 40 Mg Tablet PO 05/12/25 08:59 QDAY SHANTA Gabapentin 100 mg 04/09/25 11:30 04/11/25 09:23 Gabapentin 100 Mg Capsule PO 05/09/25 11:29 100 mg QDAY SHANTA Administration Ceftriaxone Sodium/Dextrose 1 gm in 50 mls @ 100 mls/hr 04/07/25 19:15 04/11/25 09:23 Rocephin/D5w 1gm Iv Premix IV 04/14/25 19:14 100 mls/hr QDAY SHANTA Administration Losartan Potassium 25 mg 04/11/25 13:15 04/11/25 13:55 Losartan Potassium 25 Mg Tablet PO 05/11/25 13:14 Not Given QDAY SHANTA Meclizine HCl 12.5 mg 04/07/25 22:30 04/07/25 23:12 Meclizine Hcl 25 Mg Tablet PO 05/08/25 08:59 12.5 mg BID PRN Administration DIZZINESS Melatonin 3 mg 04/07/25 22:30 04/07/25 23:13 Melatonin 3 Mg Tablet PO 05/08/25 20:59 3 mg HS PRN Administration INSOMNIA Metoprolol Succinate 100 mg 04/09/25 11:00 04/11/25 09:23 Metoprolol Succinate Xl 25 Mg Tabcr PO 05/09/25 10:59 100 mg QDAY SHANTA Administration Polyethylene Glycol 17 gm 04/09/25 10:00 04/11/25 09:24 Polyethylene Glycol 17 Gm Packet PO 05/09/25 09:59 17 gm QDAY SHANTA Administration Plan A 89-year-old female with a past medical history of essential hypertension, GI bleed, anemia secondary to diverticulosis in 2019, osteoarthritis GERD presented to the emergency department for worsening bilateral lower extremity swelling. 1. New onset atrial fibrillation with RVR 2. Acute CHF exacerbation-systolic, EEF 35-40% 3. Severe anemia with hemoglobin of 7.9 4. Essential hypertension 5. History of GI bleed with history of diverticulosis in 2019 6. Iron deficiency anemia 7. Osteoarthritis 8. GERD 9. Neuropathy-autonomic? Patient presented with new onset paroxysmal atrial fibrillation with RVR with a heart rate of around 130-120 bpm. EKG confirmed the atrial fibrillation. Patient was started on diltiazem drip at 5 mg/h and now rate is controlled between 60 to 80 bpm. Patient blood pressure appears to be stable. Recommended to stop the diltiazem drip 2 hours after starting metoprolol XL 50 mg once daily. Can also start with metoprolol 25 mg once daily for now and give an additional dose of the blood pressure is permissible. Patient potassium is 3.5 recommend to replace with 60 mg oral potassium and also to keep potassium greater than 4 magnesium greater than 2.0 at all times. Heparin drip for anticoagulation if no contraindications of any acute GI bleed and will need Eliquis later if hemoglobin stable as the chads Vascor is high. Patient appears to have new onset CHF exacerbation-unclear if systolic versus diastolic. Patient does have 2+ lower extremity edema bilaterally. BNP elevated at 379 and as well as chest x-ray shows mild vascular congestion. Recommend to start diuresis with Lasix 40 mg IV once daily and keep net -1 to 2 L/day. Monitor renal function closely. Strict input output Daily weights and 2 g sodium diet. Echocardiogram ordered and will follow-up the results to confirm systolic versus diastolic congestive heart failure. Patient does have systolic congestive heart failure then patient will need goal- directed medical therapy with beta-camilla, Entresto and spironolactone based on her blood pressure. Severe anemia with hemoglobin of 7.9. Iron studies shows really low iron at 14 and low saturation at 4% with elevated TIBC at 389. Discussed with the primary team to give patient IV iron daily for now and further workup to rule out any kind of acute GI bleed or hemolysis. Patient will need to be on anticoagulation given her new onset paroxysmal atrial fibrillation with RVR. 04/10/2025 No recurrent RVR overnight. HR 89-low 100s, BP 135/94. Asymptomatic with chest pain or sob. ? Continue METOP SUCC 100 mg daily, will increase dose if HR uncontrolled and BP tolerates. LE edema improved slighted, 2+ today, lungs clear, good urine output, ECHO showed EF 35-40% with mod reduced LV function, mod RA dilitation, mild LA dilitation mild mac, mild-mod MR, mild AV sclerosis w/o stenosis. Renal function and potassium normal. ? Continue LASIX 40 mg and fluid restrictions ? Will need close cardiology follow-up for cardiac optimization and GDMT Constipated, had small brown stool 04/08, reports straining hard earlier this morning, likely cause for her to go. ? On bowel regimen, gave glycerine enema x1 Hgb 7.9, no signs of active bleed, had positive occult blood test from previous admission on December 2024 Transfused 1 unit PRBC, Hgb 9.2 today. ? Transfuse if Hgb less than 8 ? Recommended anemia workup, including occult blood test Management of rest of the medical conditions as per primary team and other consultants. Thank you for the consult and allowing me to participate in the care of the patient. Cardiology will continue to follow. Thank you for the opportunity to participate in the patient's care. Case was discussed with attending, Dr. Hanson. Marybeth De Paz, DO PGYI Attending Provider Attestation/Addendum I have personally seen and examined the patient separately on the above date of service and discussed the plan of care with the resident. I reviewed the resident Dr. Marybeth De Paz consultation progress note and agree with the resident findings and plan in the note above and have also edited the documentation to reflect my findings and plan. Armando Hanson M.D. Interventional Cardiology
[2025-04-11] MEDS: MELATONIN 3 MG TABLET PO (20:47)
[2025-04-12] VITALS (9 sets, daily range): BP systolic 94–113; BP diastolic 57–72; PULSE 77–115; RESP 16–22; TEMP 36.1–36.7; O2SAT 94–98; BMI 34.9
[2025-04-12 06:23] LABS: Basophils % (Auto) 1 % (0-2.5); Eosinophils # (Auto) 0.3 Thou/mm3 (0.0-0.5); Eosinophils % (Auto) 3 % (0-10); Hematocrit 27.9 % (36.0-46.0); Hemoglobin 9.1 g/dL (12.0-16.0); Immature Granulocytes % (Auto) 1 % (0-0); Immature Granulocytes Auto 0.05 Thou/mm3 (0.00-0.00); Lymphocytes # (Auto) 1.2 Thou/mm3 (1.0-4.8); Lymphocytes % (Auto) 14 % (10-50); Mean Corpuscular HGB Conc 32.6 g/dl (31.0-37.0); Mean Corpuscular Hemoglobin 25.8 pg (25.0-35.0); Mean Corpuscular Volume 79 fL (80-100); Monocytes % (Auto) 12 % (0-12); Neutrophils # (Auto) 5.6 Thou/mm3 (1.8-7.7); Neutrophils % (Auto) 69 % (37-80); Nucleated Red Blood Cell % 0 /100 WBC (0); Platelet Count 268 Thou/mm3 (140-440); RDW Standard Deviation 52.4 fL (36.4-46.3); Red Blood Count 3.53 Miln/mm3 (4.00-5.20); White Blood Count 8.1 Thou/mm3 (3.6-11.0)
[2025-04-12 06:48] LABS: Alanine Aminotransferase 10 U/L (10-49); Albumin, Serum 3.5 gm/dL (3.4-4.8); Albumin/Globulin Ratio 1.1 (1.2-2.2); Alkaline Phosphatase 103 U/L (46-116); Anion Gap 9 (7-16); Aspartate Amino Transferase 19 U/L (0-34); BUN/Creatinine Ratio 29 Ratio (12-20); Bilirubin,Total 0.6 mg/dL (0.3-1.2); Blood Urea Nitrogen 20 mg/dL (9-23); Calcium 8.1 mg/dL (8.3-10.6); Calcium (Corrected) 8.5 mg/dL (8.5-10.1); Chloride 97 mMol/L (98-107); Creatinine (Component) 0.7 mg/dL (0.6-1.3); Estimated Creatinine Clearance 54.4 mL/min (>60); Globulin 3.2 gm/dL (2.3-3.5); Glucose 107 mg/dL (74-106); Osmolality,Calculated 276 (275-295); Phosphorous 3.7 mg/dL (2.4-5.1); Potassium 4.3 mMol/L (3.4-5.1); Sodium 137 mMol/L (136-145); Total Protein 6.7 gm/dL (5.7-8.2); eGFR > 60 See Note
--- NOTE | 2025-04-12 08:21 | PD.RESPRO ---
Documentation for date of: 04/12/25 Subjective Subjective Interval history: No acute overnight events. Denies fever, chills, headaches, chest pain, sob, cough, GI or urinary symptoms. Had 2 large bowel movements this morning. Still in atrial fibrillation but heart rate well-controlled between 80-90s, will continue METOPROLOL XL 100 mg daily. 24H urine output 500 cc, no lung crackles on exam, 1-2+ dependant LE edema mikie, cellulitis improved, renal function WNL, will switch to LASIX 40 mg IV daily while in the hospital, discharge on LASIX 40 mg PO daily. Exam Vital Signs Temp Pulse Resp BP Pulse Ox O2 Del Method O2 Flow Rate 97.0 F 98 16 113/62 94 L Room Air 0 04/12/25 08:00 04/12/25 08:00 04/12/25 08:00 04/12/25 08:00 04/12/25 08:00 04/12/25 08:00 04/10/25 18:48 Narrative Exam General: Alert and oriented x3. In no acute distress. Eyes: Pupils are equal and reactive to light bilaterally. HEENT: Atraumatic, normocephalic. No JVD noted. Mucosa moist. Cardiovascular: Normal S1 and S2. Irregularly irregular, 2 or 6 systolic murmur heard in the right sternal border as well as the apex, no rubs and gallops. trace bilateral lower extremity edema, cellulitis improved. Respiratory: No respiratory distress. Lungs are clear to auscultation bilaterally but decreased at the bases with occasional crackles. Abdomen: Soft, nontender, nondistended. Skin: No rash. Warm to touch. 2+ dependant edema of mikie LE Musculoskeletal: No gross injuries. Able to move all 4 extremities. Neuro: Alert and oriented x3. No focal neuro deficits. Psych: Normal affect and mood Objective Labs 04/12/25 05:22 04/12/25 05:22 Labs: Laboratory Results - last 24 hr 04/11/25 04/12/25 13:00 05:22 WBC 8.1 RBC 3.53 L Hgb 9.1 L Hct 27.9 L MCV 79 L MCH 25.8 MCHC 32.6 RDW Std Deviation 52.4 H Plt Count 268 Neut % (Auto) 69 Lymph % (Auto) 14 [place] % (Auto) 12 Eos % (Auto) 3 Baso % (Auto) 1 Neut # (Auto) 5.6 Lymph # (Auto) 1.2 [place] # (Auto) 1.0 H Eos # (Auto) 0.3 Baso # (Auto) 0.0 Immature Gran # (Auto) 0.05 H Absolute Nucleated RBC 0.00 Immature Gran % 1 H Nucleated RBC % 0 Sodium 137 Potassium 4.3 Chloride 97 L Carbon Dioxide 31.0 Anion Gap 9 BUN 20 Creatinine 0.7 Estim Creat Clear Calc 54.4 L eGFR > 60 BUN/Creatinine Ratio 29 H Glucose 107 H Calculated Osmolality 276 Calcium 8.1 L Corrected Calcium 8.5 Phosphorus 3.7 Magnesium 2.0 Total Bilirubin 0.6 AST 19 ALT 10 Alkaline Phosphatase 103 Total Protein 6.7 Albumin 3.5 Globulin 3.2 Albumin/Globulin Ratio 1.1 L Stool Occult Blood Negative Quality Measures Quality Measures VTE prophylaxis (Eliquis) Advance care planning discussed with:: patient Assessment & Plan Assessment Current Active Medications: Generic Name Dose Route Start Last Admin Trade Name Freq PRN Reason Stop Dose Admin Apixaban 5 mg 04/07/25 21:00 04/11/25 20:47 Apixaban 2.5 Mg Tablet PO 05/07/25 20:59 5 mg BID SHANTA Administration Bisacodyl 5 mg 04/09/25 10:00 04/11/25 09:25 Bisacodyl 5 Mg Tabec PO 05/09/25 09:59 Not Given QDAY SHANTA Protocol Furosemide 40 mg 04/12/25 09:00 Furosemide 40 Mg Tablet PO 05/12/25 08:59 QDAY SHANTA Gabapentin 100 mg 04/09/25 11:30 04/11/25 09:23 Gabapentin 100 Mg Capsule PO 05/09/25 11:29 100 mg QDAY SHANTA Administration Ceftriaxone Sodium/Dextrose 1 gm in 50 mls @ 100 mls/hr 04/07/25 19:15 04/11/25 09:23 Rocephin/D5w 1gm Iv Premix IV 04/14/25 19:14 100 mls/hr QDAY SHANTA Administration Losartan Potassium 25 mg 04/11/25 13:15 04/11/25 13:55 Losartan Potassium 25 Mg Tablet PO 05/11/25 13:14 Not Given QDAY SHANTA Meclizine HCl 12.5 mg 04/07/25 22:30 04/07/25 23:12 Meclizine Hcl 25 Mg Tablet PO 05/08/25 08:59 12.5 mg BID PRN Administration DIZZINESS Melatonin 3 mg 04/07/25 22:30 04/11/25 20:47 Melatonin 3 Mg Tablet PO 05/08/25 20:59 3 mg HS PRN Administration INSOMNIA Metoprolol Succinate 100 mg 04/09/25 11:00 04/11/25 09:23 Metoprolol Succinate Xl 25 Mg Tabcr PO 05/09/25 10:59 100 mg QDAY SHANTA Administration Polyethylene Glycol 17 gm 04/09/25 10:00 04/11/25 09:24 Polyethylene Glycol 17 Gm Packet PO 05/09/25 09:59 17 gm QDAY SHANTA Administration Plan A 89-year-old female with a past medical history of essential hypertension, GI bleed, anemia secondary to diverticulosis in 2019, osteoarthritis GERD presented to the emergency department for worsening bilateral lower extremity swelling. 1. New onset atrial fibrillation with RVR 2. Acute CHF exacerbation-systolic, EEF 35-40% 3. Severe anemia (improved) 4. Essential hypertension (stable) 5. History of GI bleed with history of diverticulosis in 2019 6. Iron deficiency anemia (stable) 7. Osteoarthritis 8. GERD 9. Neuropathy-autonomic? Patient presented with new onset paroxysmal atrial fibrillation with RVR with a heart rate of around 130-120 bpm. EKG confirmed the atrial fibrillation. Patient was started on diltiazem drip at 5 mg/h and now rate is controlled between 60 to 80 bpm. Patient blood pressure appears to be stable. Recommended to stop the diltiazem drip 2 hours after starting metoprolol XL 50 mg once daily. Can also start with metoprolol 25 mg once daily for now and give an additional dose of the blood pressure is permissible. Patient potassium is 3.5 recommend to replace with 60 mg oral potassium and also to keep potassium greater than 4 magnesium greater than 2.0 at all times. Heparin drip for anticoagulation if no contraindications of any acute GI bleed and will need Eliquis later if hemoglobin stable as the chads Vascor is high. Patient appears to have new onset CHF exacerbation-unclear if systolic versus diastolic. Patient does have 2+ lower extremity edema bilaterally. BNP elevated at 379 and as well as chest x-ray shows mild vascular congestion. Recommend to start diuresis with Lasix 40 mg IV once daily and keep net -1 to 2 L/day. Monitor renal function closely. Strict input output Daily weights and 2 g sodium diet. ECHO showed EF 35-40% with mod reduced LV function, mod RA dilitation, mild LA dilitation mild mac, mild-mod MR, mild AV sclerosis w/o stenosis Patient does have systolic congestive heart failure then patient will need goal-directed medical therapy with beta-camilla, Entresto and spironolactone based on her blood pressure. Severe anemia with hemoglobin of 7.9. Iron studies shows really low iron at 14 and low saturation at 4% with elevated TIBC at 389. Discussed with the primary team to give patient IV iron daily for now and further workup to rule out any kind of acute GI bleed or hemolysis. Patient will need to be on anticoagulation given her new onset paroxysmal atrial fibrillation with RVR. 04/11/2025 Normotensive, still in atrial fibrillation but HR controlled, 80-90s, asymptomatic without chest pain or SOB. 24H Urine output 500cc, renal function WNL, 2+ dep LE edema, lungs CTAB without rales. Hgb 9.1 improving, afebrile, no leukocytosis. Constipation resolved. - Patient received IV iron for 3 days in the hospital and will be discharged on oral iron as per the primary care ? Continue METOPROLOL XL 100 mg daily for rate control and can be uptitrated later based on the blood pressures ? Continue LASIX 40 mg IV daily, switch to PO Lasix 40 mg once daily on discharge (gave 1 extra dose this afternoon) ? Continue LOSARTAN 25 mg daily ? Will follow-up in office, may initiate GDMT inpatient if able. Management of rest of the medical conditions as per primary team and other consultants. Thank you for the consult and allowing me to participate in the care of the patient. Cardiology will continue to follow. Thank you for the opportunity to participate in the patient's care. Case was discussed with attending, Dr. Hanson. Marybeth De Paz DO PGYI Attending Provider Attestation/Addendum I have personally seen and examined the patient separately on the above date of service and discussed the plan of care with the resident. I reviewed the resident Dr. Marybeth De Paz consultation progress note and agree with the resident findings and plan in the note above and have also edited the documentation to reflect my findings and plan. Armando Hanson M.D. Interventional Cardiology
[2025-04-12] MEDS: cefTRIAXone/D5w 1gm IV premix 1 GM/50 ML BAG IV (09:34)
[2025-04-12] MEDS: GABAPENTIN 100 MG CAPSULE PO (09:34)
[2025-04-12] MEDS: Furosemide 40 MG TABLET PO (09:34)
[2025-04-12] MEDS: POLYETHYLENE GLYCOL 17 GM PACKET PO (09:35)
[2025-04-12] MEDS: bisacodyL 5 MG TABEC PO (09:35)
[2025-04-12] MEDS: METOPROLOL SUCCINATE XL 25 MG TABCR 100 MG PO (09:35)
[2025-04-12] MEDS: APIXABAN 2.5 MG TABLET 5 MG PO (09:35)
--- NOTE | 2025-04-12 10:05 | PD.RESDS ---
Planned Discharge Date 04/12/25 DS: Providers Provider Date of admission: 04/07/25 19:22 Primary care physician: Physician No Primary/Family Admitting Provider: Jean Navarro MD Attending Provider on Admission: Jyoti Guevara MD Consults: 04/07/25 19:15 Consult to Cardiology Routine Comment: CHF Consulting Provider: Mar Santos 04/09/25 14:20 Referral Physical Therapy Urgent Comment: Physician Instructions: Attending Provider on DC: Gui Carmen MD Discharging Provider: Gui Carmen MD DS: Diagnosis Problem List Completed Was Problem List Reviewed/Reconciled?: Yes Hospital Course Hospital Course Hospital course: Ivory is a 89-year-old female was admitted on April 07, 2025 for acute exacerbation of HFrEF and new onset A-fib with RVR. She had arrived to the ED with vital signs recorded as temp 98.8 F, HR 130 bpm, RR 18, BP 113/76 mmHg, saturation 95% on room air. Labs revealed WBC 7.7, Hb 8.9, Plt 379, Na 139, K 4.1, BUN 28, Creatinine 1.0, Glucose 126, BNP 379, Troponin negative. CXR showed mild heart failure. EKG revealed atrial fibrillation with RVR. Patient was started on Cardizem drip by ER physician. Patient was admitted by internal medicine for further management of A-fib and HFrEF. Cardizem drip had never been started for patient and patient was managed with IV beta-blockers and was then started on metoprolol XL 100 mg and patient continued to be rate controlled. While patient was on the floors, patient had echocardiogram done which showed HFrEF, EF 35 to 40%, diastolic dysfunction could not be graded due to patient being in atrial fibrillation, and mild to moderate RVSP elevation.patient was started on anticoagulation, Eliquis 5 mg twice a day due to [id number] being 5. Patient was being diuresed with 40 mg of IV Lasix in which patient was able to be net negative upon DC. Patient did not require oxygen upon discharge. Goal-directed medical therapy was attempted to be started on patient, however patient continued to have low blood pressure and AVANI/ARB, Entresto nor Jardiance was initiated at the time. We will have patient's rubber printing machine operator initiate these therapies once patient can tolerate with blood pressure. Discharge Instructions: Follow up with Dr. Hanson, rubber printing machine operator, within one week upon D/[place], [place] [id number]. Call to make an appointment. Follow up with your PCP within one week I am prescribing you Eliquis, this is your blood thinner for your atrial fibrillation, take this pill twice a day I am prescribing you Metoprolol 100 mg XL, this is to control your heart rate, take this pill once a day. I am prescribing your Iron, take this pill once every other day. I will be prescribing you a water pill, Lasix 40 mg every day, speak with your primary care doctor or rubber printing machine operator if there needs to be an adjustment in dose I will hold your lisinopril due to your blood pressure being low, speak with your PCP or rubber printing machine operator on deciding to resuming your medicine I recommend you getting a blood pressure cuff to measure your blood pressure every day to manage your high blood pressure Take your medicines as prescribed Return to ER if your symptoms worsen or return Have your PCP continue to work up your anemia Problem List: #Atrial Fibrillation with RVR #Acute exacerbation of HFrEF, EF 35 to 40% #Iron deficiency anemia #UTI #Bilateral lower extremity pain most likely secondary to: Neuropathy versus venous insufficiency #Bilateral lower extremity neuropathy #Bilateral lower extremity redness insufficiency #Right ankle cellulitis Discharge summary was reviewed with my attending Dr. Paola Farfan, PGY-1 Time Spent with Patient Time attestation: Total time spent providing and/or coordinating discharge services: Time spent: Greater than 30 minutes Exam Vital Signs Temp Pulse Resp BP Pulse Ox O2 Del Method O2 Flow Rate 97.0 F 103 H 16 113/60 94 L Room Air 0 04/12/25 08:00 04/12/25 09:35 04/12/25 08:00 04/12/25 09:35 04/12/25 08:00 04/12/25 08:00 04/10/25 18:48 Narrative Exam General: AAOx3, NAD, obese Qatari-speaking female HEENT: Moist mucous membranes, conjunctiva clear, EOMI, PERRLA, Cardiovascular: Ejection systolic murmur, radial pulses +2 bilat, irregularly irregular Pulmonary: CTAB bilat no cough, no wheezing GI: No tenderness to light or deep palpitation, no guarding, rigidity, rebound tenderness or distension Extremities: Trace edema seen in lower extremities, dorsalis pedis pulses +2 bilaterally, venous stasis, cellulitis improving right lower extremity Neuro: AAOx3, no focal motor or sensory deficits in the UE or LE bilat Psych: Good judgement, thought and behavior. Cooperative Discharge Plan Plan Patient Disposition: Xfer Skilled Nsg Fac (SNF) Patient condition on transfer: Stable Care Plan Goals: Discharge Instructions: Follow up with Dr. Hanson, rubber printing machine operator, within one week upon D/[place] [id number]. Call to make an appointment. Follow up with your PCP within one week I am prescribing you Eliquis, this is your blood thinner for your atrial fibrillation, take this pill twice a day, Monitor for any signs of bleed. I am prescribing you Metoprolol 100 mg XL, this is to control your heart rate, take this pill once a day. I am prescribing your Iron, take this pill once every other day. I will be prescribing you a water pill, Lasix 40 mg every day, speak with your primary care doctor or rubber printing machine operator if there needs to be an adjustment in dose I will hold your lisinopril due to your blood pressure being low, speak with your PCP or rubber printing machine operator on deciding to resuming your medicine I recommend you getting a blood pressure cuff to measure your blood pressure every day to manage your high blood pressure Take your medicines as prescribed Return to ER if your symptoms worsen or return Have your PCP continue to work up your anemia Prescriptions/Referrals Prescriptions/Med Rec: New furosemide [Lasix] 40 mg tablet 40 mg PO QDAY 30 Days Qty: 30 0RF Rx Instructions: Take one tablet once a day every day Eliquis 5 mg tablet 5 mg PO BID 30 Days Qty: 60 0RF Rx Instructions: Take one tablet by mouth twice a day every day metoprolol succinate 100 mg tablet extended release 24 hr 100 mg PO QDAY 30 Days Qty: 30 0RF Rx Instructions: Take this tablet once a day every day ferrous sulfate [Iron (ferrous sulfate)] 325 mg (65 mg iron) tablet 325 mg PO Q OTHER DAY 30 Days Qty: 15 0RF Rx Instructions: Take one tablet by mouth once every other day Continued cholecalciferol (vitamin D3) 25 mcg (1,000 unit) tablet 25 mcg PO DAILY Patient Comments: TAKE 1 TABLET BY MOUTH EVERY DAY FOR 90 DAYS meclizine 12.5 mg tablet 12.5 mg PO Q12H PRN (Reason: dizziness) Patient Comments: TAKE 1 TABLET BY MOUTH EVERY 12 HOURS NEEDED FOR 30 DAYS dexlansoprazole 30 mg capsule,biphase delayed releas 30 mg PO DAILY Patient Comments: TAKE 1 CAPSULE BY MOUTH ONCE DAILY Held lisinopril 10 mg tablet 10 mg PO DAILY Hold Instructions: resume with pcp/rubber printing machine operator Patient Comments: TOME 1 TABLETA POR V A ORAL TODOS LOS D PARA 90 SANCHEZ Discontinued furosemide 20 mg tablet 20 mg PO DAILY Patient Comments: TOME RORY TABLETA POR V A ORAL A DIARIO POR 10 D Referrals: No Primary/Family,Physician [Primary Care Provider] - Patient/Caregiver Discharge Instructions Discharge Activity: as per physical therapy and activity as tolerated Education Materials: Heart Failure Meds, Coping with Heart Failure, Heart Failure Dc Print Language: German Stand Alone Forms: Lizzy Award Info., Patient Portal Info Letter Discharge Order Discharge Orders: Discharge (Routine); Ordered 04/11/25 Ordered By: Bong Farfan Quality Discharge Quality Measures VTE prophylaxis (Eliquis) Attestestation MD Attestation I have examined the patient, reviewed labs and imaging findings, discussed the case with the resident(s), and reviewed entered orders. I agree with the plan of care as outlined in this note. Time Spent: [address] Nella MD
--- NOTE | 2025-04-12 10:51 | PC.SS ---
SS recieved call from Marcia at [facility] who states they have received insurance authorization. SS has informed Prabhjot GILLIAM. SS also received call from patient's dtr who is aware [facility] has accepted and insurance authorization has been provided.
--- NOTE | 2025-04-12 13:05 | PC.SS ---
OFFICE MACHINE PUNCH OPERATOR confirmed from [facility] admission staff that authorization has been obtained. Patient updated patient's daughter and patient.
[2025-04-12] MEDS: FUROSEMIDE INJ 10 MG/ML 4ML VIAL 40 MG IVP (13:24)
[2025-04-12] MEDS: Magnesium Sulfate 2 GM Ivpb 2 GM/50 ML BAG IV (13:24)
--- NOTE | 2025-04-12 16:58 | PC.SS ---
PASSR submitted to [facility] on file exchange.
--- NOTE | 2025-04-13 08:00 | CHAP ---
Patient was visited by a Spiritual Care Volunteer on 04/12/2025 between 0900 and 1130 and received comfort, encouragement and/or prayer.
== END 2025-04-12 18:20 | disposition skilled nursing facility (03) | DRG 308 ==
LOC: SERX 18:56 → SERHOLD 19:26 → S2NX 22:15
PROVIDERS: Nurse Practitioner Family; Student in an Organized Health Care Education/Training Program; Admitting Provider Internal Medicine; Emergency Provider Emergency Medicine; Visit Provider Student in an Organized Health Care Education/Training Program
DX: I48.0 Paroxysmal atrial fibrillation (principal); I50.23 Acute on chronic systolic (congestive) heart failure; N39.0 Urinary tract infection, site not specified; L03.115 Cellulitis of right lower limb; M16.0 Bilateral primary osteoarthritis of hip; I11.0 Hypertensive heart disease with heart failure; K59.00 Constipation, unspecified; I25.10 Atherosclerotic heart disease of native coronary artery without angina pectoris; G57.93 Unspecified mononeuropathy of bilateral lower limbs; E11.41 Type 2 diabetes mellitus with diabetic mononeuropathy; K21.9 Gastro-esophageal reflux disease without esophagitis; D50.9 Iron deficiency anemia, unspecified; Z79.01 Long term (current) use of anticoagulants; Z79.899 Other long term (current) drug therapy; Z87.442 Personal history of urinary calculi
CPT/HCPCS: 36415; 71046; 80048; 80053; 80061; 81001; 82270; 82607; 82728; 82746; 83036; 83540; 83550; 83735; 83880; 84100; 84439; 84443; 84484; 85014; 85018; 85025; 85610; 85730; 86850; 86900; 86901; 86923; 87081; 93005; 93306; 96374; 97162; 99285; J0696; J1938; J2916; J3475; J3490; J7050; P9016; A9270